=== PATIENT | female | born 1945 | race Caucasian/White ===

== ENCOUNTER 2019-04-01 09:08 | Inpatient (IN) | payer MEDICARE, OTHER ==
[~2019-04-01] VITALS: Ht 157.5 cm; Wt 72.3 kg
[2019-04-01] VITALS (7 sets, daily range): BP systolic 124–155; BP diastolic 62–80
[~2019-04-01 09:08] MED LIST: CEFD300C3 PO; IBP200T PO; IPRA3AMP11 INH; PRD20T PO; RT-COMBINH IH
--- NOTE | 2019-04-01 10:40 | NUR ---
PT ARRIVED TO FLOOR VIA WHEELCHAIR WITH AT SIDE. DIRECT ADMIT FROM DR. COLLIER OFFICE. PT SHORT OF BREATH UPON ARRIVAL WITH MOVEMENT 74% ON RA. 2L NC APPLIED. SP02 93% ON THE 2LNC. PT AND ORIENTED TO ROOM. CALL LIGHT WITHIN REACH. PT REPORTS NKDA.
--- OUTSIDE RECORDS SUMMARY | 2019-04-01 10:50 | XMS REPORT | Continuity of Care Document ---
Author Organization Unknown Address Unknown Allergies Active Description Code Type Severity Reaction Onset Reported/Identified Relationship to Patient Clinical Status Yes No Known Drug Allergies [id number] Drug Allergy Unknown N/A 04/18/2013 Medications There is no data. Problems Date Dx Coded Attending Type Code Diagnosis Diagnosed By 04/18/2013 SHAKILA OSBORNE MD Ot 305.1 04/18/2013 SHAKILA OSBORNE MD Ot 496 04/18/2013 SHAKILA OSBORNE MD Ot 786.2 03/02/2016 RADHA RIVAS APRN Ot J44.9 03/22/2016 RADHA RIVAS APRN Ot J44.9 CHRONIC OBSTRUCTIVE PULMONARY DISEASE, U 04/06/2016 RADHA RIVAS APRN Ot J44.9 CHRONIC OBSTRUCTIVE PULMONARY DISEASE, U Procedures There is no data. Results There is no data. Encounters ACCT No. Visit Date/Time Discharge Status Pt. Type Provider Facility Loc./Unit Complaint 02/201803/12/2019 10:26:26 03/12/2019 23:59:59 CLS Outpatient Jeane Basilio [id number] 03/02/2016 12:08:00 03/02/2016 23:59:59 CLS Outpatient RADHA RIVAS APRN [facility] RAD [id number] 04/18/2013 08:47:00 04/18/2013 12:33:00 DIS Emergency SHAKILA OSBORNE MD [facility] ER
--- OUTSIDE RECORDS SUMMARY | 2019-04-01 10:50 | XMS REPORT | Continuity of Care Document ---
Author Author [facility] Organization [facility] Address Unknown Phone Unavailable Care Team Providers Care Regional Office Coordinator Name Role Phone SHARMILA ODELL DO PP Insurance Providers Payer Name Policy Number Subscriber Name Relationship s Medicare [id number] Rakel Escobar 01 Self / Same As Patient [facility] [employer] [id number] Rakel Escobar Genevieve Self / Same As Patient Advance Directives Directive Response Recorded Date Advance Directives N 04/18/13 8:48am Health Care Power of Motor Carrier Inspector N 04/18/13 8:48am Organ Donor Y 04/18/13 8:48am Problems No Known Problems or Medical conditions. Social History History Response Recorded Date/Time Alcohol Use Denies Use 04/18/13 8:48am Recreational Drug Use N 04/18/13 8:48am Recent Foreign Travel N 04/18/13 8:48am Recent Infectious Disease Exposure N 8:48am Allergies, Adverse Reactions, Alerts Allergen Type Severity Reaction Last Updated No Known Drug Allergies 04/18/13 Medications Medication Dose Units Route Sig Qty Days Prednisone 20 Mg PO DAILY 25 Cefdinir 1 Each PO BID 14 Ipratropium/Albuterol Sulfate (Combivent Inhaler) 2 Puff IH Q6HR PRN 1 Albuterol/Ipratropium (Duoneb Rt) 3 Ml INH QID 1 Ibuprofen (Motrin) 1 Each PO Q4HR PRN Response Recorded Date/Time Status not known Unknown Results No Known Relevant Diagnostic Tests, Laboratory Data and/or Discharge Summary. Encounters Encounter Location Date/Time Departed Emergency Room [facility] 8:47am
[2019-04-01] MEDS ORDERED: TEMAZEPAM 7.5 MG CAP (RESTORIL) PO PRN (12:45)
[2019-04-01] MEDS ORDERED: ACETAMINOPHEN 325 MG TABLET PO PRN (12:45)
[2019-04-01] MEDS ORDERED: PATIENT MAY USE OWN MEDS, ALL PO SCH (12:45)
[2019-04-01] MEDS ORDERED: CETI10TA20 PO (12:50)
[2019-04-01] MEDS ORDERED: SPIR25TA PO (12:50)
[2019-04-01] MEDS ORDERED: IBUP-30 PO (12:50)
[2019-04-01] MEDS ORDERED: BUDE10.2 IH (12:50)
[2019-04-01] MEDS: methylPREDNISolone 125 MG (Solu-MEDROL) VIAL IV SCH ×2 (13:00→19:53)
[2019-04-01] MEDS ORDERED: IPRA3AMP31 NEB (13:15)
--- NOTE | 2019-04-01 13:15 | NUR ---
SPOKE WITH THE PATIENT ABOUT HER MEDICATIONS. SHE LISTED WHAT SHE IS TAKING AND I CALLED [facility] TO VERIFY THE DOSES. [facility] FILLED: 02-14-19 SPIRONOLACTONE 25MG 2 DAILY #180 SHE REPORTS USING SYMBICORT AND A NEBULIZER SOLUTION HOWEVER [facility] DID NOT HAVE THEM ON FILE. I CALLED DR. ODELL'S OFFICE AND THEY STATE SHE HAS SYMBICORT 160 AND DUONEB NEBULIZER SOLUTION. SHE STATES SHE ALSO TAKES ZYRTEC 10MG DAILY AND IBU PRN - THESE ARE OTC.
[2019-04-01 13:49] LABS: BASOPHILS % (AUTO) 0 % (0-10); EOSINOPHILS # (AUTO) 0.2 10^3/uL (0.0-0.3); EOSINOPHILS % (AUTO) 2 % (0-10); HEMATOCRIT 41 % (35-52); HEMOGLOBIN 12.9 G/DL (11.5-16.0); LYMPHOCYTES # (AUTO) 1.6 X 10^3 (1.0-4.0); LYMPHOCYTES % (AUTO) 19 % (12-44); MEAN CORPUSCULAR HEMOGLOBIN 28 PG (25-34); MEAN CORPUSCULAR HGB CONC 32 G/DL (32-36); MEAN CORPUSCULAR VOLUME 89 FL (80-99); MEAN PLATELET VOLUME 8.6 FL (7.4-10.4); MONOCYTES # (AUTO) 0.8 X 10^3 (0.0-1.0); MONOCYTES % (AUTO) 9 % (0-12); NEUTROPHILS % (AUTO) 70 % (42-75); PLATELET COUNT 450 10^3/uL (130-400); RED CELL DISTRIBUTION WIDTH 14.6 % (10.0-14.5); WHITE BLOOD COUNT 8.6 10^3/uL (4.3-11.0)
[2019-04-01 14:05] LABS: ALANINE AMINOTRANSFERASE 20 U/L (0-55); ALBUMIN 3.8 GM/DL (3.2-4.5); ALKALINE PHOSPHATASE 81 U/L (40-136); BILIRUBIN,TOTAL 0.4 MG/DL (0.1-1.0); BUN/CREATININE RATIO 18; CALCIUM 9.5 MG/DL (8.5-10.1); CARBON DIOXIDE 28 MMOL/L (21-32); CHLORIDE 103 MMOL/L (98-107); CREATININE SERUM 0.67 MG/DL (0.60-1.30); GFR ESTIMATED > 60; GLUCOSE 107 MG/DL (70-105); SODIUM 138 MMOL/L (135-145); TOTAL PROTEIN 7.5 GM/DL (6.4-8.2)
[2019-04-01] MEDS: RT-ALBUTEROL/IPRATROPIUM 3 ML (DUONEB) VIAL INH SCH ×3 (15:06→22:02)
--- NOTE | 2019-04-01 17:24 | Diagnostic Imaging Report ---
INDICATION: Difficulty breathing. PA and lateral chest obtained at 1:43 p.m. and compared to 03/02/2016. FINDINGS: Heart is normal in size. There are COPD changes. There is chronic interstitial disease. There appear to be acute superimposed infiltrates over the lung bases on both sides, left greater than right. There is no pneumothorax or pleural fluid. IMPRESSION: COPD changes and chronic interstitial disease. There appear to be acute superimposed infiltrates over the lower lobes on both sides, left worse than right. Superimposed pneumonia not excluded. Followup is recommended. Dictated by: Dictated on workstation # [id number]
--- NOTE | 2019-04-01 19:02 | History & Physicial ---
History of Present Illness History of Present Illness Reason for visit/HPI This is a 73 year old female with known COPD who presented to my office with worsening shortness of air. She was found to be hypoxic with oxygen saturation of 88%. She was placed on oxygen in the office and directly admitted to the hospital for treatment. Date of Admission April 01, 2019 at 10:45 Time Seen by a Provider: 12:30 I consulted on this patient on 04/01/19 18:57 Attending Physician Jeane Basilio DO Admitting Physician Jeane Basilio DO Consult Allergies and Home Medications Allergies Coded Allergies: No Known Drug Allergies (Unverified , 04/01/19) Home Medications Budesonide/Formoterol Fumarate 10.2 Gm Hfa.aer.ad, 2 PUFF IH BID, (Reported) Cetirizine HCl 10 Mg Tablet, 10 MG PO DAILY, (Reported) Ibuprofen 200 Mg Tablet, 400-800 MG PO TID PRN for PAIN-MILD, (Reported) Ipratropium/Albuterol Sulfate 3 Ml Ampul.neb, 3 ML NEB Q6H PRN for SHORTNESS OF BREATH, (Reported) Spironolactone 25 Mg Tablet, 50 MG PO DAILY, (Reported) TAKES 2 (25MG) TABLETS Patient Home Medication List Home Medication List Reviewed: Yes Past Xtppboc-Liplze-Mvvzoz Hx Patient Social History Alcohol Use: Denies Use Recreational Drug Use: No Physical Abuse Screen: No Sexual Abuse: No Recent Foreign Travel: No Contact w/other who traveled: Yes (Daughter- [place]) Recent Hopitalizations: No Recent Infectious Disease Expo: No Immunizations Up To Date Pediatric: No Date of Pneumonia Vaccine: Sep 01, 2018 Seasonal Allergies Seasonal Allergies: No Surgeries Yes Respiratory Yes Currently Using CPAP: No Currently Using BIPAP: No Cardiovascular No Neurological No Reproductive System Hx Reproductive Disorders: No Genitourinary No Gastrointestinal No Musculoskeletal No Endocrine History of Endocrine Disorders: No HEENT Loss of Vision: Denies Hearing Impairment: Hard of Hearing, Bilateral Hearing Aide Cancer No Psychosocial History of Psychiatric Problem: No Integumentary History of Skin or Integumenta: No Blood Transfusions History of Blood Disorders: No Adverse Reaction to a Blood Tr: No Review of Systems Constitutional: weakness EENTM: nose congestion Respiratory: cough, dyspnea on exertion, short of breath, wheezing Gastrointestinal: No RUQ, No LUQ, No RLQ, No LLQ, No no symptoms reported, No see HPI, No abdominal pain, No constipation, No diarrhea, No dysphagia, No hematemesis, No heartburn, No jaundice, No loss of appetite, No melena, No nausea, No vomiting, No other Genitourinary: No no symptoms reported, No see HPI, No decreased output, No discharge, No dysuria, No frequency, No hematuria, No hesitancy, No incontinence , No nocturia, No pain, No other Musculoskeletal: No no symptoms reported, No see HPI, No back pain, No gout, No joint pain, No joint swelling, No muscle pain, No muscle stiffness, No muscle cramps, No muscle twitching, No muscle weakness, No neck pain, No other Skin: No no symptoms reported, No see HPI, No change in color, No change in hair/nails, No dryness, No hx of skin cancer, No lesions, No lumps, No pruritus , No rash, No other Psychiatric/Neurological: Denies No Symptoms Reported, Denies See HPI, Denies Anxiety, Denies Depressed, Denies Emotional Problems, Denies Headache, Denies Numbness, Denies Paresthesia, Denies Pre-Existing Deficit, Denies Seizure, Denies Tingling, Denies Tremors, Denies Weakness, Denies Other Physical Exam Vital Signs Vital Signs - First Documented 04/01/19 10:50 Temp 97.2 Pulse 98 Resp 24 B/P (MAP) 149/65 (93) Pulse Ox 93 O2 Delivery Nasal Cannula O2 Flow Rate 2.00 Capillary Refill : Height, Weight, BMI Height: 5'2.00" Weight: 154lbs. 0.0oz. 69.431165yu; 28.2 BMI Method:Stated General Appearance: Mild Distress HEENT: Pharynx Normal Neck: Supple Respiratory: Decreased Breath Sounds, Respiratory Distress, Wheezing Cardiovascular: Regular Rate, Rhythm Gastrointestinal: Non Tender, Soft Rectal: Deferred Back: No CVA Tenderness Extremity: Non Tender, No Calf Tenderness, No Pedal Edema Neurologic/Psychiatric: Alert, Oriented x3 Skin: Warm/Dry Comments Laboratory Tests 04/01/19 13:18: White Blood Count 8.6, Red Blood Count 4.60, Hemoglobin 12.9, Hematocrit 41, Mean Corpuscular Volume 89, Mean Corpuscular Hemoglobin 28, Mean Corpuscular Hemoglobin Concent 32, Red Cell Distribution Width 14.6H, Platelet Count 450H, Mean Platelet Volume 8.6, Neutrophils (%) (Auto) 70, Lymphocytes (%) (Auto) 19, Monocytes (%) (Auto) 9, Eosinophils (%) (Auto) 2, Basophils (%) (Auto) 0, Neutrophils # (Auto) 6.0, Lymphocytes # (Auto) 1.6, Monocytes # (Auto) 0.8, Eosinophils # (Auto) 0.2, Basophils # (Auto) 0.0, Sodium Level 138, Potassium Level 4.0, Chloride Level 103, Carbon Dioxide Level 28, Anion Gap 7, Blood Urea Nitrogen 12, Creatinine 0.67, Estimat Glomerular Filtration Rate > 60, BUN/ Creatinine Ratio 18, Glucose Level 107H, Calcium Level 9.5, Corrected Calcium 9.7, Total Bilirubin 0.4, Aspartate Amino Transf (AST/SGOT) 16, Alanine Aminotransferase (ALT/SGPT) 20, Alkaline Phosphatase 81, Troponin I < 0.028, Total Protein 7.5, Albumin 3.8 Assessment/Plan Assessment and Plan 1. COPD with acute exacerbation--IV solumedrol, SVNs with duoneb 2. Hypoxemia--oxygen and SVNs 3. Hypertension/Tachycardia--add low dose metoprolol Admission Diagnosis Admission Status: Inpatient Order (span 2 midnights) Reason for Inpatient Admission: Will need IV solumedrol and then to be weaned from this Clinical Quality Measures DVT/VTE Risk/Contraindication: Risk Factor Score Per Nursin RFS Level Per Nursing on Admit: 4+=Very High JEANE BASILIO DO April 01, 2019 19:02
[2019-04-01] MEDS ORDERED: CATHETER FLUSH 10 ML SYR IV PRN (20:15)
[2019-04-01] MEDS: DOXYCYCLINE 100 MG (VIBRAMYCIN) TABLET PO SCH (21:41)
[2019-04-01] MEDS: CATHETER FLUSH 10 ML SYR IV SCH (22:17)
[2019-04-02] MEDS: methylPREDNISolone 125 MG (Solu-MEDROL) VIAL IV SCH ×4 (01:21→18:55)
[2019-04-02] MEDS: RT-ALBUTEROL/IPRATROPIUM 3 ML (DUONEB) VIAL INH SCH ×6 (02:10→22:06)
[2019-04-02] MEDS: CATHETER FLUSH 10 ML SYR IV SCH ×3 (06:27→22:19)
[2019-04-02] MEDS: DOXYCYCLINE 100 MG (VIBRAMYCIN) TABLET PO SCH ×2 (06:27→17:01)
[2019-04-02 08:00] VITALS: BP 141/60
[2019-04-02 14:00] VITALS: BP 122/69
--- NOTE | 2019-04-02 15:58 | Diagnostic Imaging Report ---
PROCEDURE: CT chest without contrast. TECHNIQUE: Multiple contiguous axial images were obtained through the chest without the use of intravenous contrast. Auto Exposure Controls were utilized during the CT exam to meet ALARA standards for radiation dose reduction. INDICATION: COPD exacerbation, dyspnea, infiltrates. COMPARISON: Radiographs from 04/01/2019. FINDINGS: The heart is normal in size. There is no pericardial effusion. No significant mediastinal adenopathy is seen. The largest mediastinal lymph node measures 9 mm in the short axis in the precarinal region. There is no pleural effusion or pneumothorax. Mild emphysematous changes are seen in the lungs. There are linear opacities in the lung bases which are thought to be due to atelectasis and scarring. There also appear to be airspace opacities at the lingula and the anterior middle lobe bilaterally, with additional scattered peripheral nodular densities in the left lung base. No focal mass is seen at this time. Imaged portions of the upper abdomen demonstrate no acute abnormality. No acute osseous abnormality is seen. IMPRESSION: 1. Atelectasis and scarring in the lung bases, left greater than right, with additional bilateral airspace and left basilar nodular opacities which may be due to superimposed infection. 2. Mild emphysematous changes in the lungs. Dictated by: Dictated on workstation # [id number]
[2019-04-02 16:35] VITALS: BP 116/61
--- NOTE | 2019-04-02 18:16 | Progress Note (SOAP) ---
Subjective Date Seen by a Provider: April 02, 2019 Time Seen by a Provider: 18:13 Subjective/Events-last exam Fwup COPD exac, hypoxia, Tachycardia, HTN. Feeling better. Objective Exam Vital Signs Date Time Temp Pulse Resp B/P (MAP) Pulse Ox O2 Delivery O2 Flow Rate FiO2 04/02/19 16:35 97.1 92 24 116/61 (79) 91 Nasal Cannula 2.00 04/02/19 14:00 97.5 100 18 122/69 (86) 90 Nasal Cannula 2.00 04/02/19 08:30 92 Nasal Cannula 2.00 04/02/19 08:16 92 Nasal Cannula 2.00 04/02/19 08:00 97.4 78 18 141/60 (87) 90 Nasal Cannula 2.00 04/02/19 02:10 92 Nasal Cannula 2.00 04/01/19 23:31 97.4 93 16 155/80 (105) 93 Nasal Cannula 2.00 04/01/19 22:02 96 Nasal Cannula 2.00 04/01/19 20:28 95 Nasal Cannula 2.00 04/01/19 19:10 98.3 91 16 124/72 (89) 95 Nasal Cannula 2.00 04/01/19 18:34 96 Nasal Cannula 2.00 I & O 04/02/19 07:00 Intake Total 1180 ml Output Total 2400 ml Balance -1220 ml Capillary Refill : General Appearance: Mild Distress Neck: Supple Respiratory: Lungs Clear, Decreased Breath Sounds, Respiratory Distress (mild conversational dyspnea) Cardiovascular: Regular Rate, Rhythm Gastrointestinal: normal bowel sounds, non tender, soft Extremity: Non Tender, No Calf Tenderness, No Pedal Edema Neurologic/Psychiatric: Alert, Oriented x3 Skin: Warm/Dry Assessment/Plan Assessment/Plan Assess & Plan/Chief Complaint 1. Acute Exacerbation of COPD with Acute Bronchitis--Check CT scan of chest, Continue SVNs, Decrease IV solumedrol, Doycycline started 2. Hypoxia--on oxygen 3. Tachycardia/HTN--improved with low dose beta mireya Clinical Quality Measures Admission Status Admission Dx 1. COPD with acute exacerbation--IV solumedrol, SVNs with duoneb 2. Hypoxemia--oxygen and SVNs 3. Hypertension/Tachycardia--add low dose metoprolol DVT/VTE Risk/Contraindication: Risk Factor Score Per Nursin RFS Level Per Nursing on Admit: 4+=Very High SHARMILA ODELL DO April 02, 2019 18:16
[2019-04-03] VITALS: BP 119/71
[2019-04-03] MEDS: methylPREDNISolone 125 MG (Solu-MEDROL) VIAL IV SCH ×4 (01:25→18:27)
[2019-04-03] MEDS: RT-ALBUTEROL/IPRATROPIUM 3 ML (DUONEB) VIAL INH SCH ×6 (01:45→22:30)
[2019-04-03] MEDS: CATHETER FLUSH 10 ML SYR IV SCH ×2 (06:25→13:08)
[2019-04-03] MEDS: DOXYCYCLINE 100 MG (VIBRAMYCIN) TABLET PO SCH ×2 (06:27→17:46)
[2019-04-03 08:00] VITALS: BP_SYST 130; BP_SYST 96; BP_DIAS 53; BP_DIAS 61
[2019-04-03 14:00] VITALS: BP 131/75
[2019-04-03 16:10] VITALS: BP 120/65
--- NOTE | 2019-04-03 21:53 | Progress Note (SOAP) ---
Subjective Date Seen by a Provider: April 03, 2019 Time Seen by a Provider: 08:35 Subjective/Events-last exam Fwup COPD exac, hypoxia, Tachycardia, HTN. Little more short of air this morning. Objective Exam Vital Signs Date Time Temp Pulse Resp B/P (MAP) Pulse Ox O2 Delivery O2 Flow Rate FiO2 04/03/19 19:59 Nasal Cannula 5.00 04/03/19 19:04 88 Nasal Cannula 3.00 04/03/19 16:10 97.0 88 24 120/65 (83) 91 Nasal Cannula 4.00 04/03/19 14:00 98.0 98 18 131/75 (93) 97 Nasal Cannula 2.00 04/03/19 13:58 94 Nasal Cannula 3.00 04/03/19 09:39 93 Nasal Cannula 3.00 04/03/19 08:00 92 Nasal Cannula 2.00 04/03/19 08:00 97.6 101 18 130/61 (84) 98 Nasal Cannula 2.00 04/03/19 06:23 90 Nasal Cannula 91.00 04/03/19 01:47 90 Nasal Cannula 3.00 04/03/19 00:00 96.8 94 22 119/71 (87) 92 Nasal Cannula 2.00 04/02/19 22:08 88 Nasal Cannula 2.00 I & O 04/03/19 07:00 Intake Total 1180 ml Output Total 950 ml Balance 230 ml Capillary Refill : General Appearance: Mild Distress Neck: Supple Respiratory: Decreased Breath Sounds, Respiratory Distress (mild) Cardiovascular: Regular Rate, Rhythm Gastrointestinal: normal bowel sounds, non tender, soft Extremity: No Calf Tenderness, No Pedal Edema Neurologic/Psychiatric: Alert, Oriented x3 Skin: Warm/Dry Assessment/Plan Assessment/Plan Assess & Plan/Chief Complaint 1. Acute Exacerbation of COPD with Acute Bronchitis--Continue SVNs, Cont IV solumedrol, Doycycline started 2. Hypoxia--on oxygen 3. Tachycardia/HTN--improved with low dose beta mireya Clinical Quality Measures Admission Status Admission Dx 1. COPD with acute exacerbation--IV solumedrol, SVNs with duoneb 2. Hypoxemia--oxygen and SVNs 3. Hypertension/Tachycardia--add low dose metoprolol DVT/VTE Risk/Contraindication: Risk Factor Score Per Nursin RFS Level Per Nursing on Admit: 4+=Very High SHARMILA ODELL DO April 03, 2019 21:53
[2019-04-04 00:16] VITALS: BP 115/55
[2019-04-04] MEDS: CATHETER FLUSH 10 ML SYR IV SCH ×4 (01:12→20:08)
[2019-04-04] MEDS: methylPREDNISolone 125 MG (Solu-MEDROL) VIAL IV SCH ×4 (01:13→17:41)
[2019-04-04] MEDS: RT-ALBUTEROL/IPRATROPIUM 3 ML (DUONEB) VIAL INH SCH ×6 (01:25→22:12)
--- NOTE | 2019-04-04 01:30 | NUR ---
PT. SITTING ON SIDE OF BED. BREATHING LABORED/ SOA AT REST. RT IN ROOM. DR. ODELL NOTIFIED BY VENESSA RT NEW ORDERS RECEIVED: PLACE ON BIPAP WILL CONTINUE TO MONITOR.
[2019-04-04] MEDS ORDERED: LORazepam INJ 2 MG/ML (ATIVAN) VIAL ONE (02:38)
[2019-04-04] MEDS ORDERED: LORazepam INJ 2 MG/ML (ATIVAN) VIAL IVP PRN (02:45)
--- NOTE | 2019-04-04 02:48 | NUR ---
DR. ODELL NOTIFIED OF PT STATUS. PT'S BREATHING AND O2 SATURATION IMPROVED. PT ANXIOUS WITH MASK AND PRESSURE. NEW ORDERS RECEIVED: ATIVAN 0.5MG IV Q6HRS PRN
[2019-04-04] MEDS: DOXYCYCLINE 100 MG (VIBRAMYCIN) TABLET PO SCH ×2 (06:10→17:42)
[2019-04-04 08:00] VITALS: BP 143/67
[2019-04-04] MEDS ORDERED: FAMOTIDINE 20MG/2ML IV (PEPCID) IVP NR (10:54)
[2019-04-04 11:04] LABS: BASOPHILS % (AUTO) 0 % (0-10); EOSINOPHILS % (AUTO) 0 % (0-10); HEMATOCRIT 41 % (35-52); HEMOGLOBIN 13.1 G/DL (11.5-16.0); LYMPHOCYTES # (AUTO) 0.7 X 10^3 (1.0-4.0); LYMPHOCYTES % (AUTO) 4 % (12-44); MEAN CORPUSCULAR HEMOGLOBIN 29 PG (25-34); MEAN CORPUSCULAR HGB CONC 32 G/DL (32-36); MEAN CORPUSCULAR VOLUME 90 FL (80-99); MEAN PLATELET VOLUME 8.6 FL (7.4-10.4); MONOCYTES # (AUTO) 0.5 X 10^3 (0.0-1.0); MONOCYTES % (AUTO) 3 % (0-12); NEUTROPHILS # (AUTO) 16.2 X 10^3 (1.8-7.8); NEUTROPHILS % (AUTO) 93 % (42-75); PLATELET COUNT 486 10^3/uL (130-400); RED CELL DISTRIBUTION WIDTH 14.9 % (10.0-14.5); WHITE BLOOD COUNT 17.3 10^3/uL (4.3-11.0)
--- NOTE | 2019-04-04 11:06 | Diagnostic Imaging Report ---
INDICATION: Respiratory distress COMPARISON: 04/01/2019 FINDINGS: Single view of the chest demonstrates stable cardiac enlargement. Chronic interstitial changes are seen throughout both lungs. There is persistent but decreasing infiltrate in the left lung base. No large effusion is seen. There is no pneumothorax. There is no pulmonary edema. Osseous structures stable. IMPRESSION: Persistent but decreased infiltrate left lung base. Dictated by: Dictated on workstation # [id number]
[2019-04-04 11:18] LABS: BAND NEUTROPHILS 3 %; BASOPHILS % (MANUAL) 0 %; EOSINOPHILS % (MANUAL) 0 %; LYMPHOCYTES % (MANUAL) 8 %; MONOCYTES % (MANUAL) 0 %; NEUTROPHILS % (MANUAL) 89 %; RBC MORPH NORMAL
[2019-04-04 11:24] LABS: ALBUMIN 3.7 GM/DL (3.2-4.5); BILIRUBIN,TOTAL 0.2 MG/DL (0.1-1.0); CALCIUM 9.6 MG/DL (8.5-10.1); CREATININE SERUM 0.92 MG/DL (0.60-1.30); POTASSIUM 4.8 MMOL/L (3.6-5.0)
[2019-04-04] MEDS: cefTRIAXone FOR IV USE 1,000 MG in WATER (STERILE) FOR INJECTION 10 ML IV SCH (11:36)
[2019-04-04] MEDS: ENOXAPARIN 40 MG/0.4 ML (LOVENOX) SYR SC SCH (11:36)
--- NOTE | 2019-04-04 12:23 | Pulmonary Consultation ---
History of Present Illness History of Present Illness Date of Consultation 04/04/19 12:17 Time Seen by Provider: 12:17 Date of Admission History of Present Illness 73yo with hx of COPD and worsening SOB. She was found to be hypoxic with Sp02 of 88% in Dr. Basilio's office on 04/01. Pt was then directly admitted to 4th floor. Pt has been requiring high dose solumedrol and is also now requiring BiPAP. No fevers since admission. I am consulted for pulmonary management. Allergies and Home Medications Allergies Coded Allergies: No Known Drug Allergies (Unverified , 04/01/19) Home Medications Budesonide/Formoterol Fumarate 10.2 Gm Hfa.aer.ad, 2 PUFF IH BID, (Reported) Cetirizine HCl 10 Mg Tablet, 10 MG PO DAILY, (Reported) Ibuprofen 200 Mg Tablet, 400-800 MG PO TID PRN for PAIN-MILD, (Reported) Ipratropium/Albuterol Sulfate 3 Ml Ampul.neb, 3 ML NEB Q6H PRN for SHORTNESS OF BREATH, (Reported) Spironolactone 25 Mg Tablet, 50 MG PO DAILY, (Reported) TAKES 2 (25MG) TABLETS Past Rgxarow-Ltzdnl-Aycatu Hx Patient Social History Alcohol Use: Denies Use Recreational Drug Use: No Recent Foreign Travel: No Contact w/Someone Who Travel: Yes (Daughter- [place]) Recent Infectious Disease Expo: No Recent Hopitalizations: No Immunizations Up To Date PED Vaccines UTD: No Date of Pneumonia Vaccine: Sep 01, 2018 Seasonal Allergies Seasonal Allergies: No Past Medical History Surgeries: Yes Respiratory: Yes COPD, Emphysema Currently Using CPAP: No Currently Using BIPAP: No Cardiac: No Neurological: No : No Reproductive Disorders: No Genitourinary: No Gastrointestinal: No Musculoskeletal: No Endocrine: No Loss of Vision: Denies Hearing Impairment: Hard of Hearing, Bilateral Hearing Aide Cancer: No Psychosocial: No Integumentary: No Blood Disorders: No Adverse Reaction/Blood Tranf: No Review of Systems Time Seen by Provider: 12:30 Sepsis Event Evaluation Height, Weight, BMI Height: 5'2.00" Weight: 161lbs. 8.3oz. 73.115111wn; 28.2 BMI Method:Stated Exam Exam Vital Signs Date Time Temp Pulse Resp B/P (MAP) Pulse Ox O2 Delivery O2 Flow Rate FiO2 04/04/19 10:46 91 26 94 40.00 04/04/19 08:00 97.3 90 31 143/67 (92) 96 Nasal Cannula 2.00 04/04/19 07:21 87 21 98 50.00 04/04/19 02:37 94 37 98 50.00 04/04/19 01:38 113 31 98 60.00 04/04/19 01:33 NIV Bilevel 04/04/19 01:25 85 Nasal Cannula 6.00 04/04/19 00:16 97.2 104 24 115/55 (75) 95 Nasal Cannula 5.00 04/03/19 22:30 94 Nasal Cannula 5.00 04/03/19 19:59 Nasal Cannula 5.00 04/03/19 19:04 88 Nasal Cannula 3.00 04/03/19 16:10 97.0 88 24 120/65 (83) 91 Nasal Cannula 4.00 04/03/19 14:00 98.0 98 18 131/75 (93) 97 Nasal Cannula 2.00 04/03/19 13:58 94 Nasal Cannula 3.00 I & O 04/04/19 07:00 Intake Total 1340 ml Output Total 650 ml Balance 690 ml Height & Weight Height: 5'2.00" Weight: 161lbs. 8.3oz. 73.678014cf; 28.2 BMI Method:Stated General Appearance: Anxious, Chronically ill, Moderate Distress, Thin HEENT: Pharynx Normal Neck: Supple Respiratory: Decreased Breath Sounds, Respiratory Distress (mild) Cardiovascular: Regular Rate, Rhythm Gastrointestinal: normal bowel sounds, non tender, soft Extremity: No Calf Tenderness, No Pedal Edema Neurologic/Psychiatric: Alert, Oriented x3 Skin: Warm/Dry Results Lab Laboratory Tests 04/04/19 11:00 Assessment/Plan Assessment/Plan Acute respiratory failure -Check ABG -Check Bilateral dopplers LE -pt is currently requiring noninvasive ventilation. COPDAE with hypoxia -Solumedrol -Oxygen -Duoneb Anxiety -Pt is getting Ativan DOM COTE DO April 04, 2019 12:23
[2019-04-04 12:58] LABS: ABG BASE EXCESS 1.6 MMOL/L (-2.5-2.5); ABG OXYGEN SATURATION 98 % (94-100); ABG PCO2 44 MMHG (35-45); ABG PH 7.39 (7.37-7.43); ABG PO2 104 MMHG (79-93); ABG TCO2 27.6 MMOL/L (21.0-31.0); ALLENS TEST YES-POS
[2019-04-04 12:59] LABS: INSPIRED O2 40% BIPAP; PATIENT TEMP 97.2; VENTILATOR NO
--- NOTE | 2019-04-04 13:52 | Progress Note (SOAP) ---
Subjective Date Seen by a Provider: April 04, 2019 Time Seen by a Provider: 10:15 Subjective/Events-last exam Fwup COPD exac, hypoxia, Tachycardia, HTN. Had to be put on BIPAP last night due to respiratory distress. Objective Exam Vital Signs Date Time Temp Pulse Resp B/P (MAP) Pulse Ox O2 Delivery O2 Flow Rate FiO2 04/04/19 10:46 91 26 94 40.00 04/04/19 08:00 94 NIV Bilevel 40.00 04/04/19 08:00 97.3 90 31 143/67 (92) 96 Nasal Cannula 2.00 04/04/19 07:21 87 21 98 50.00 04/04/19 02:37 94 37 98 50.00 04/04/19 01:38 113 31 98 60.00 04/04/19 01:33 NIV Bilevel 04/04/19 01:25 85 Nasal Cannula 6.00 04/04/19 00:16 97.2 104 24 115/55 (75) 95 Nasal Cannula 5.00 04/03/19 22:30 94 Nasal Cannula 5.00 04/03/19 19:59 Nasal Cannula 5.00 04/03/19 19:04 88 Nasal Cannula 3.00 04/03/19 16:10 97.0 88 24 120/65 (83) 91 Nasal Cannula 4.00 04/03/19 14:00 98.0 98 18 131/75 (93) 97 Nasal Cannula 2.00 04/03/19 13:58 94 Nasal Cannula 3.00 I & O 04/04/19 07:00 Intake Total 1340 ml Output Total 650 ml Balance 690 ml Capillary Refill : General Appearance: Mild Distress Neck: Supple Respiratory: Lungs Clear, Decreased Breath Sounds, Respiratory Distress (on BiPAP) Cardiovascular: Regular Rate, Rhythm Gastrointestinal: normal bowel sounds, non tender, soft Extremity: Non Tender, No Calf Tenderness, No Pedal Edema Neurologic/Psychiatric: Alert, Oriented x3 Results Lab Laboratory Tests 04/04/19 11:00: White Blood Count 17.3H, Red Blood Count 4.54, Hemoglobin 13.1, Hematocrit 41, Mean Corpuscular Volume 90, Mean Corpuscular Hemoglobin 29, Mean Corpuscular Hemoglobin Concent 32, Red Cell Distribution Width 14.9H, Platelet Count 486H, Mean Platelet Volume 8.6, Neutrophils (%) (Auto) 93H, Lymphocytes (%) (Auto) 4L , Monocytes (%) (Auto) 3, Eosinophils (%) (Auto) 0, Basophils (%) (Auto) 0, Neutrophils # (Auto) 16.2H, Lymphocytes # (Auto) 0.7L, Monocytes # (Auto) 0.5, Eosinophils # (Auto) 0.0, Basophils # (Auto) 0.0, Neutrophils % (Manual) 89, Lymphocytes % (Manual) 8, Monocytes % (Manual) 0, Eosinophils % (Manual) 0, Basophils % (Manual) 0, Band Neutrophils 3, Blood Morphology Comment NORMAL, Sodium Level 139, Potassium Level 4.8, Chloride Level 105, Carbon Dioxide Level 23, Anion Gap 11, Blood Urea Nitrogen 37H, Creatinine 0.92, Estimat Glomerular Filtration Rate 60, BUN/Creatinine Ratio 40, Glucose Level 141H, Calcium Level 9.6, Corrected Calcium 9.8, Total Bilirubin 0.2, Aspartate Amino Transf (AST/ SGOT) 14, Alanine Aminotransferase (ALT/SGPT) 25, Alkaline Phosphatase 76, Total Protein 7.0, Albumin 3.7 04/04/19 12:45: Blood Gas Puncture Site RT RAD, Blood Gas Patient Temperature 97.2, Arterial Blood pH 7.39, Arterial Blood Partial Pressure CO2 44, Arterial Blood Partial Pressure O2 104H, Arterial Blood HCO3 26, Arterial Blood Total CO2 27.6, Arterial Blood Oxygen Saturation 98, Arterial Blood Base Excess 1.6, Marshal Test YES-POS, Blood Gas Ventilator Setting NO, Blood Gas Inspired Oxygen 40% BIPAP Microbiology 04/03/19 Gram Stain - Final, Resulted 04/03/19 Sputum Culture - Preliminary, Resulted Strep Species, Alpha Hemolytic Gram Negative Adi Assessment/Plan Assessment/Plan Assess & Plan/Chief Complaint 1. Acute Exacerbation of COPD with Acute Bronchitis--Continue SVNs, Cont IV solumedrol, Doycycline started, Will add rocephin and repeat CXR 2. Hypoxia with Acute Respiratory Distress--now on BIPAP, consult pulmonology, Check ABG to see if we can wean to vapotherm 3. Tachycardia/HTN--improved with low dose beta mireya 4. Anxiety related to BIPAP--has ativan IV prn Clinical Quality Measures Admission Status Admission Dx 1. COPD with acute exacerbation--IV solumedrol, SVNs with duoneb 2. Hypoxemia--oxygen and SVNs 3. Hypertension/Tachycardia--add low dose metoprolol DVT/VTE Risk/Contraindication: Risk Factor Score Per Nursin RFS Level Per Nursing on Admit: 4+=Very High SHARMILA ODELL DO April 04, 2019 13:51
[2019-04-04] MEDS ORDERED: HOLD METFORMIN - RECEIVED CONTRAST 20 ML VIAL IV SCH (14:00)
[2019-04-04] MEDS ORDERED: IOHEXOL 350 MG/ML 150 ML (OMNIPAQUE 350) VIAL IV ONE (14:00)
--- NOTE | 2019-04-04 14:42 | Diagnostic Imaging Report ---
PROCEDURE: US Venous Lower Ext Kj. TECHNIQUE: Multiple real-time grayscale images were obtained over the lower extremities in various projections, bilaterally. Additional duplex Doppler and color Doppler images were also obtained. INDICATION: COPD, exacerbation. FINDINGS: There is no evidence of right or left lower extremity DVT. Both lower extremity deep venous systems demonstrate normal compressibility with normal response to augmentation and Valsalva. No fluid collection or mass is seen. IMPRESSION: No evidence of right or left lower extremity DVT. Dictated by: Dictated on workstation # [id number]
--- NOTE | 2019-04-04 15:57 | Diagnostic Imaging Report ---
PROCEDURE: CT angiography of the chest with contrast. TECHNIQUE: Multiple contiguous axial images were obtained through the chest after uneventful bolus administration of intravenous contrast. 2D reconstructed CTA MIP acquisitions were also performed. Auto Exposure Controls were utilized during the CT exam to meet ALARA standards for radiation dose reduction. INDICATION: Shortness of air. History of COPD. COMPARISON: 04/02/2019. FINDINGS: There is no CT evidence of acute pulmonary embolus to the first subsegmental division of the pulmonary arteries. Heart size is within normal limits. There is no large pericardial effusion. There is moderate scattered calcified aortic atherosclerosis. There is also at least mild calcified coronary atherosclerosis. Evaluation of the coronary arteries, however, is obscured by motion artifact as well as beam hardening artifact from contrast bolus in the right atrium and ventricle. No pathologically enlarged or morphologically abnormal adenopathy is seen within the mediastinum, halle, nor axillae. Evaluation of the lung windows demonstrates patchy alveolar densities within both lower lobes, as well as within the anterior inferior margins of the right middle lobe and lingula of the left upper lobe. Juxtapleural 8 mm micronodular density is noted within the posterior left lower lobe (image 94, series 5). There is also subtle septal thickening and ground-glass densities within the bilateral upper lobes. These changes appear to be superimposed on a background moderate emphysematous disease. There is no large effusion or pneumothorax on either side. Bony structures show no acute abnormalities. Included portions of the upper abdomen are unremarkable. IMPRESSION: 1. No evidence of acute pulmonary embolus. 2. Calcified aortic and coronary atherosclerotic disease as described above. 3. Patchy areas of alveolar density within the bilateral mid and lower lung schilling. Findings could be on the basis of atelectasis, although scattered patchy infiltrate is not excluded. Clinical correlation and followup is advised. 4. 8 mm micronodular density within the left lower lobe. Please see below for followup recommendations. 5. Subtle septal thickening and ground-glass densities suspicious for pulmonary edema potentially superimposed on background emphysematous disease. Clinical correlation recommended. PULMONARY NODULE FOLLOW-UP Single nodule: <6 mm: * Low risk patient - no routine follow up * High risk patient - optional at 12 months 6-8 mm in size: * Low risk patient - Ct at 6-12 months, then consider at 18-24 months * High risk patient - Ct at 6-12 months, then at 18-24 months >8 mm * Low risk patient - consider CT at 3 months, PET/CT or tissue sampling * High risk patient - consider CT at 3 months, PET/CT, or tissue sampling (Certain patients at high risk with suspicious nodule morphology, upper lobe location, or both may warrant 12-month follow-up) Dictated by: Dictated on workstation # [id number]
[2019-04-04 16:10] VITALS: BP 124/60
[2019-04-04] MEDS ORDERED: FAMOTIDINE 20MG/2ML IV (PEPCID) IVP SCH (21:00)
[2019-04-05 00:06] VITALS: BP 127/59
[2019-04-05] MEDS: methylPREDNISolone 125 MG (Solu-MEDROL) VIAL IV SCH ×4 (00:06→19:36)
[2019-04-05] MEDS: RT-ALBUTEROL/IPRATROPIUM 3 ML (DUONEB) VIAL INH SCH ×6 (02:15→22:49)
[2019-04-05] MEDS: CATHETER FLUSH 10 ML SYR IV SCH ×3 (06:19→21:14)
[2019-04-05] MEDS: DOXYCYCLINE 100 MG (VIBRAMYCIN) TABLET PO SCH ×2 (06:19→17:16)
[2019-04-05 06:43] LABS: BASOPHILS % (AUTO) 0 % (0-10); EOSINOPHILS % (AUTO) 0 % (0-10); HEMATOCRIT 42 % (35-52); HEMOGLOBIN 13.1 G/DL (11.5-16.0); LYMPHOCYTES # (AUTO) 0.6 X 10^3 (1.0-4.0); LYMPHOCYTES % (AUTO) 4 % (12-44); MEAN CORPUSCULAR HEMOGLOBIN 28 PG (25-34); MEAN CORPUSCULAR HGB CONC 32 G/DL (32-36); MEAN CORPUSCULAR VOLUME 89 FL (80-99); MONOCYTES # (AUTO) 0.5 X 10^3 (0.0-1.0); MONOCYTES % (AUTO) 4 % (0-12); NEUTROPHILS # (AUTO) 12.5 X 10^3 (1.8-7.8); NEUTROPHILS % (AUTO) 92 % (42-75); PLATELET COUNT 513 10^3/uL (130-400); WHITE BLOOD COUNT 13.7 10^3/uL (4.3-11.0)
[2019-04-05 08:00] VITALS: BP 145/64
--- NOTE | 2019-04-05 08:39 | Pulmonary Progress Note ---
Subjective Time Seen by a Provider: 09:04 Subjective/Events-last exam pt has no complaints. Sepsis Event Evaluation Height, Weight, BMI Height: 5'2.00" Weight: 160lbs. 5.3oz. 72.542609gu; 28.2 BMI Method:Stated Exam Exam Vital Signs Date Time Temp Pulse Resp B/P (MAP) Pulse Ox O2 Delivery O2 Flow Rate FiO2 04/05/19 07:49 94 Nasal Cannula 4.00 04/05/19 02:15 98 Nasal Cannula 4.00 04/05/19 00:06 97.3 97 22 127/59 (81) 97 Nasal Cannula 4.00 04/04/19 22:12 94 Nasal Cannula 4.00 04/04/19 20:00 Nasal Cannula 4.00 04/04/19 18:37 94 Nasal Cannula 4.00 04/04/19 16:10 98.6 103 24 124/60 (81) 92 Nasal Cannula 4.00 04/04/19 14:38 76 26 97 40.00 04/04/19 10:46 91 26 94 40.00 I & O 04/05/19 07:00 Intake Total 730 ml Output Total 475 ml Balance 255 ml Height & Weight Height: 5'2.00" Weight: 160lbs. 5.3oz. 72.333963sq; 28.2 BMI Method:Stated General Appearance: Mild Distress HEENT: Pharynx Normal Neck: Supple Respiratory: Lungs Clear, Decreased Breath Sounds, Respiratory Distress (on BiPAP) Cardiovascular: Regular Rate, Rhythm Gastrointestinal: normal bowel sounds, non tender, soft Extremity: Non Tender, No Calf Tenderness, No Pedal Edema Neurologic/Psychiatric: Alert, Oriented x3 Skin: Warm/Dry Results Lab Laboratory Tests 04/04/19 11:00 04/05/19 06:04 Assessment/Plan Assessment/Plan Acute respiratory failure - ABG- C02 44 -Check Bilateral dopplers LE - negative -CT of chest shows atelectasis -pt is currently requiring noninvasive ventilation. COPDAE with hypoxia -Solumedrol -Oxygen -Duoneb Anxiety -Pt is getting Ativan DOM COTE DO April 05, 2019 08:39
[2019-04-05] MEDS: FAMOTIDINE 20MG/2ML IV (PEPCID) IVP SCH (09:10)
[2019-04-05] MEDS: ENOXAPARIN 40 MG/0.4 ML (LOVENOX) SYR SC SCH (10:53)
[2019-04-05] MEDS: cefTRIAXone FOR IV USE 1,000 MG in WATER (STERILE) FOR INJECTION 10 ML IV SCH (10:53)
--- NOTE | 2019-04-05 11:55 | Progress Note-Hospitalist ---
Subjective HPI/CC On Admission Date Seen by Provider: April 05, 2019 Time Seen by Provider: 12:00 Subjective/Events-last exam Patient doing much better Off Vapotherm and BiPAP and on 4 L of oxygen Overall feels much better Interested in pulmonary rehabilitation Daughter at the bedside Denies any pain Overall much improved Slept better last night Review of Systems General: Fatigue Pulmonary: Dyspnea Objective Exam Vital Signs Vital Signs Date Time Temp Pulse Resp B/P (MAP) Pulse Ox O2 Delivery O2 Flow Rate FiO2 04/05/19 11:57 96 Nasal Cannula 4.00 04/05/19 08:00 97.8 97 22 145/64 (91) Capillary Refill : General Appearance: Mild Distress HEENT: Pharynx Normal Neck: Supple Respiratory: Lungs Clear, No Accessory Muscle Use, No Respiratory Distress, Crackles, Decreased Breath Sounds, Respiratory Distress (on BiPAP) Cardiovascular: Regular Rate, Rhythm Gastrointestinal: Non Tender, Soft Rectal: Deferred Back: No CVA Tenderness Extremity: Non Tender, No Calf Tenderness, No Pedal Edema Neurologic/Psychiatric: Alert, Oriented x3 Skin: Warm/Dry Results/Procedures Lab Laboratory Tests 04/05/19 06:04 Patient resulted labs reviewed. Assessment/Plan Assessment and Plan Assess & Plan/Chief Complaint Assessment per PCP: 1. Acute Exacerbation of COPD with Acute Bronchitis--Continue SVNs, Cont IV solumedrol, Doycycline started, Will add rocephin and repeat CXR 2. Hypoxia with Acute Respiratory Distress--s/p biPAP and Vapotherm now on 4 liters/min 3. Tachycardia/HTN--improved with low dose beta mireya 4. Anxiety related to BIPAP--has ativan IV prn Plan: Doing much better Monitor oxygen Diagnosis/Problems Diagnosis/Problems (1) COPD exacerbation Status: Acute (2) Hypoxia Status: Acute Clinical Quality Measures DVT/VTE Risk/Contraindication: Risk Factor Score Per Nursin RFS Level Per Nursing on Admit: 4+=Very High MARY MARTINEZ DO April 05, 2019 11:55
--- NOTE | 2019-04-05 14:37 | Consultation-Cardiology ---
HPI-Cardiology Cardiology Consultation: Date of Consultation 04/05/19 Date of Admission Attending Physician Jeane Basilio DO Admitting Physician Jeane Basilio DO Consulting Physician Elroy CASTILLO MD HPI: Time Seen by a Provider: 13:00 Chief Complaint: Shortness of breath This is a 73-year-old lady who follows with Dr. Basilio. She has history of COPD. She was directly admitted from Dr. Basilio's office for complains of hypoxia and shortness of breath with oxygen saturation of 88 percent on room air. Patient denies any chest pain. Improved shortness of breath. Review of Systems-Cardiology Review of Systems Constitutional: As described under HPI; No As described under HPI, No no symptoms reported, No chills, No fever, No lightheadedness Eyes: No As described under HPI, No no symptoms reported, No blindness, No blurred vision, No contact lenses, No drainage, No decreased acuity, No foreign body sensation, No pain, No vision change Ears/Nose/Throat: No As described under HPI, No no symptoms reported, No chronic hearing loss, No ear discharge, No ear pain, No nasal drainage, No ulcerations Respiratory: No no symptoms reported; As described under HPI; No As described under HPI, No cough, No orthopnea; shortness of breath; No SOB with excertion Cardiovascular: No no symptoms reported; As described under HPI; No As described under HPI, No chest pain, No edema, No irregular heart rate, No lightheadedness, No palpitations Gastrointestinal: No no symptoms reported, No As described under HPI, No abdomen distended, No abdominal pain, No blood streaked bowels, No constipation , No diarrhea, No nausea, No vomiting, No stool coloration changes Genitourinary: No As described under HPI, No burning, No dysuria, No discharge , No frequency, No flank pain, No hematuria, No urgency : Yes : No Skin: No rash, No skin related problems, No ulcerations Psychiatric/Neurological: No anxiety, No depression, No seizure, No focal weakness, No syncope Hematologic: No bleeding abnormalities UXI-Naoxic-Abissi Hx Patient Social History Alcohol Use: Denies Use Recreational Drug Use: No Recent Foreign Travel: No Recent Infectious Disease Expo: No Physical Abuse Screen: No Sexual Abuse: No Immunizations Up To Date Date of Pneumonia Vaccine: Sep 01, 2018 Past Medical History PMH As described under Assessment. Allergies and Home Medications Allergies Coded Allergies: No Known Drug Allergies (Unverified , 04/01/19) Home Medications Budesonide/Formoterol Fumarate 10.2 Gm Hfa.aer.ad, 2 PUFF IH BID, (Reported) Cetirizine HCl 10 Mg Tablet, 10 MG PO DAILY, (Reported) Ibuprofen 200 Mg Tablet, 400-800 MG PO TID PRN for PAIN-MILD, (Reported) Ipratropium/Albuterol Sulfate 3 Ml Ampul.neb, 3 ML NEB Q6H PRN for SHORTNESS OF BREATH, (Reported) Spironolactone 25 Mg Tablet, 50 MG PO DAILY, (Reported) TAKES 2 (25MG) TABLETS Patient Home Medication List Home Medication List Reviewed: Yes Physical Exam-Cardiology Physical Exam Vital Signs/I&O 04/05/19 04/05/19 04/05/19 04/05/19 07:49 08:00 08:20 11:57 Temp 97.8 Pulse 97 Resp 22 B/P (MAP) 145/64 (91) Pulse Ox 94 100 96 O2 Delivery Nasal Cannula Nasal Cannula Nasal Cannula Nasal Cannula O2 Flow Rate 4.00 4.00 4.00 4.00 04/05/19 00:00 Intake Total 620 ml Output Total 475 ml Balance 145 ml Capillary Refill : Constitutional: appears stated age, AAO x 3; No apparent distress; well- developed, well-nourished HEENT: PERRL; No discharge; hearing is well preserved, oral hygience is good; No ulceration, No xanthelasmas are seen Neck: No carotid bruit; carotid pulses are 2 + bilaterally Respiratory: No accessory muscle use, No respiratory distress, No chest tender , No chest expansion is symmetric; chest is bilaterally symmetric; No lungs clear to percussion; lungs clear to auscultation; No crackles, No rhonchi, No rales, No stridor, No wheezing, No pleural rub, No other Cardiovascular: regular rate-rhythm; No irregularly irregular, No extra beats, No parasternal heave is noted, No JVD, No edema, No bradycardia, No tachycardia , No point of maximal impulse, No cardiac thrills are palpable; S1 and S2; No gallop/S3, No gallop/S4, No diastolic murmur, No systolic murmur, No friction rub, No click, No other Gastrointestinal: No tender, No soft, No round, No distended, No pulsatile mass , No organomegaly, No guarding, No rebound, No tenderness, No hernia, No mass, No audible bowel sounds, No abnormal bowel sounds, No abdominal bruits, No spleenomegaly, No other Rectal: deferred Extremities: No normal range of motion, No non-tender, No normal inspection, No pedal edema, No calf tenderness, No normal capillary refill, No pelvis stable , No calf tenderness, No inflammation, No pedal edema, No slow capillary refill , No swelling, No other, No abrasion, No clubbing, No cyanosis, No ecchymosis, No laceration, No no lower extremity edema bilateral, No significant edema, No tenderness, No wound Neurologic/Psychiatric: no motor/sensory deficits, alert, normal mood/affect, oriented x 3, power is 5/5 both on sides Skin: No normal color, No warm/dry, No cyanosis, No cool, No diaphoresis, No damp, No ecchymosis, No jaundice, No mottled, No pallor, No rash, No tattoos/ piercings, No ulcerations, No rash on exposed areas, No ulcerations on exposed areas, No other Data Review Labs Laboratory Tests 04/05/19 06:04: White Blood Count 13.7H, Red Blood Count 4.64, Hemoglobin 13.1, Hematocrit 42, Mean Corpuscular Volume 89, Mean Corpuscular Hemoglobin 28, Mean Corpuscular Hemoglobin Concent 32, Red Cell Distribution Width 15.0H, Platelet Count 513H, Mean Platelet Volume 9.0, Neutrophils (%) (Auto) 92H, Lymphocytes (%) (Auto) 4L , Monocytes (%) (Auto) 4, Eosinophils (%) (Auto) 0, Basophils (%) (Auto) 0, Neutrophils # (Auto) 12.5H, Lymphocytes # (Auto) 0.6L, Monocytes # (Auto) 0.5, Eosinophils # (Auto) 0.0, Basophils # (Auto) 0.0 Microbiology 04/03/19 Gram Stain - Final, Resulted 04/03/19 Sputum Culture - Preliminary, Resulted Strep Species, Alpha Hemolytic Escherichia coli A/P-Cardiology Assessment/Admission Diagnosis COPD exacerbation, Acute respiratory failure Plan Acute respiratory failure, significantly improved. COPD, on steroids, oxygen and inhalers. Shortness of breath, no significant cardiac workup. Will recommend an echocardiogram. One set of cardiac enzymes was negative. Thank you for your consultation. Please call me if you have any questions. Janis Castillo MD, FACP, FACC, FSCAI, FHRS, CCDS Interventional Cardiology Cardiac Electrophysiology Vascular Medicine and Endovascular Interventions Clinical Quality Measures DVT/VTE Risk/Contraindication: Risk Factor Score Per Nursin RFS Level Per Nursing on Admit: 4+=Very High Elroy CASTILLO MD April 05, 2019 14:37
[2019-04-05 16:15] VITALS: BP 141/64
[2019-04-05 23:45] VITALS: BP 132/60
[2019-04-06] MEDS: methylPREDNISolone 125 MG (Solu-MEDROL) VIAL IV SCH ×4 (00:07→18:26)
[2019-04-06] MEDS: RT-ALBUTEROL/IPRATROPIUM 3 ML (DUONEB) VIAL INH SCH ×6 (02:26→20:58)
[2019-04-06] MEDS: DOXYCYCLINE 100 MG (VIBRAMYCIN) TABLET PO SCH ×2 (05:59→16:36)
[2019-04-06] MEDS: CATHETER FLUSH 10 ML SYR IV SCH ×3 (05:59→19:41)
[2019-04-06 08:00] VITALS: BP 131/72
[2019-04-06] MEDS: FAMOTIDINE 20MG/2ML IV (PEPCID) IVP SCH (09:06)
[2019-04-06] MEDS: cefTRIAXone FOR IV USE 1,000 MG in WATER (STERILE) FOR INJECTION 10 ML IV SCH (09:07)
[2019-04-06] MEDS: ENOXAPARIN 40 MG/0.4 ML (LOVENOX) SYR SC SCH (09:07)
--- NOTE | 2019-04-06 11:46 | Progress Note-Hospitalist ---
Subjective HPI/CC On Admission Date Seen by Provider: April 06, 2019 Time Seen by Provider: 10:30 Subjective/Events-last exam Patient doing better Slept better Strep pneumo on sputum Cx Denies pain No falls + BM Weaned down to 2 liters of O2 her home level Review of Systems Pulmonary: Dyspnea Objective Exam Vital Signs Vital Signs Date Time Temp Pulse Resp B/P (MAP) Pulse Ox O2 Delivery O2 Flow Rate FiO2 04/06/19 16:00 98.3 85 20 147/76 (99) 92 High Flow N/C 3.00 Capillary Refill : General Appearance: No Apparent Distress, WD/WN, Chronically ill, Mild Distress HEENT: PERRL/EOMI, Pharynx Normal Neck: Supple Respiratory: Lungs Clear, Normal Breath Sounds, No Accessory Muscle Use, No Respiratory Distress, Decreased Breath Sounds Cardiovascular: Regular Rate, Rhythm, No Edema Gastrointestinal: Non Tender, Soft Rectal: Deferred Back: No CVA Tenderness Extremity: Non Tender, No Calf Tenderness, No Pedal Edema Neurologic/Psychiatric: Alert, Oriented x3 Skin: Warm/Dry Results/Procedures Lab Patient resulted labs reviewed. Assessment/Plan Assessment and Plan Assess & Plan/Chief Complaint Assessment per PCP: 1. Acute Exacerbation of COPD with Acute Bronchitis--Continue SVNs, Cont IV solumedrol, Doycycline started, Will add rocephin and repeat CXR 2. Hypoxia with Acute Respiratory Distress--s/p biPAP and Vapotherm now on 4 liters/min 3. Tachycardia/HTN--improved with low dose beta mireya 4. Anxiety related to BIPAP--has ativan IV prn Plan: Doing much better Monitor oxygen Diagnosis/Problems Diagnosis/Problems (1) COPD exacerbation Status: Acute (2) Hypoxia Status: Acute (3) Streptococcal infection NEC Status: Acute Clinical Quality Measures DVT/VTE Risk/Contraindication: Risk Factor Score Per Nursin RFS Level Per Nursing on Admit: 4+=Very High MARY MARTINEZ DO April 06, 2019 11:46
[2019-04-06 16:00] VITALS: BP 147/76
--- NOTE | 2019-04-06 17:48 | NUR ---
DR. MARTINEZ NOTIFIED OF MICROBIOLOGY SPUTUM CULTURE RESULTS AND MEDICATION SENSITIVITY RESULTS.
--- NOTE | 2019-04-06 18:18 | Cardiology Progress Note ---
Cardiology SOAP Progress Note Subjective: Improved shortness of breath. Objective: I&O/Vital Signs 04/06/19 04/06/19 04/06/19 04/06/19 06:51 08:00 08:00 10:38 Temp 97.7 Pulse 88 Resp 20 B/P (MAP) 131/72 (91) Pulse Ox 95 97 94 O2 Delivery Nasal Cannula Nasal Cannula High Flow N/C Nasal Cannula O2 Flow Rate 4.00 3.00 3.00 3.00 04/06/19 04/06/19 14:36 16:00 Temp 98.3 Pulse 85 Resp 20 B/P (MAP) 147/76 (99) Pulse Ox 96 92 O2 Delivery Nasal Cannula High Flow N/C O2 Flow Rate 2.00 3.00 04/06/19 00:00 Intake Total 1075 ml Output Total 1000 ml Balance 75 ml Weight (Pounds): 159 Weight (Ounces): 2.8 Weight (Calculated Kilograms): 72.639109 Constitutional: appears stated age, AAO x 3; No apparent distress; well- developed, well-nourished Respiratory: No accessory muscle use, No respiratory distress, No chest tender , No chest expansion is symmetric; chest is bilaterally symmetric; No lungs clear to percussion; lungs clear to auscultation; No crackles, No rhonchi, No rales, No stridor, No wheezing, No pleural rub, No other Cardiovascular: regular rate-rhythm; No irregularly irregular, No extra beats, No parasternal heave is noted, No JVD, No edema, No bradycardia, No tachycardia , No point of maximal impulse, No cardiac thrills are palpable; S1 and S2; No gallop/S3, No gallop/S4, No diastolic murmur, No systolic murmur, No friction rub, No click, No other Gastrointestional: No tender, No soft, No round, No distended, No pulsatile mass, No organomegaly, No guarding, No rebound, No tenderness, No hernia, No mass, No audible bowel sounds, No abnormal bowel sounds, No abdominal bruits, No spleenomegaly, No other Extremities: No normal range of motion, No non-tender, No normal inspection, No pedal edema, No calf tenderness, No normal capillary refill, No pelvis stable , No calf tenderness, No inflammation, No pedal edema, No slow capillary refill , No swelling, No other, No abrasion, No clubbing, No cyanosis, No ecchymosis, No laceration, No no lower extremity edema bilateral, No significant edema, No tenderness, No wound Neurologic/Psychiatric: no motor/sensory deficits, alert, normal mood/affect, oriented x 3, power is 5/5 both on sides Skin: No normal color, No warm/dry, No cyanosis, No cool, No diaphoresis, No damp, No ecchymosis, No jaundice, No mottled, No pallor, No rash, No tattoos/ piercings, No ulcerations, No rash on exposed areas, No ulcerations on exposed areas, No other Results/Procedures: Labs Microbiology 04/03/19 Gram Stain - Final, Complete 04/03/19 Sputum Culture - Final, Complete Usual upper respiratory danny Streptococcus pneumoniae A/P: Assessment/Dx: COPD exacerbation, Acute respiratory failure, Pulmonary hypertension, Mild diastolic dysfunction Plan: Acute respiratory failure, significantly improved. COPD, on steroids, oxygen and inhalers. Shortness of breath, likely also contribution from mild diastolic dysfunction. However unlikely the major contributing factor. Echocardiogram done on 04/06/2019 shows normal LV size and function. Mild concentric LVH with mild diastolic dysfunction. PA pressure 4550 mmHg. Mild pulmonary hypertension, follow clinically. LVH, mild diastolic dysfunction, follow clinically. Thank you for your consultation. Please call me if you have any questions. Janis Castillo MD, FACP, FACC, FSCAI, FHRS, CCDS Interventional Cardiology Cardiac Electrophysiology Vascular Medicine and Endovascular Interventions Elroy CASTILLO MD April 06, 2019 18:18
[2019-04-07 00:11] VITALS: BP 144/70
[2019-04-07] MEDS: methylPREDNISolone 125 MG (Solu-MEDROL) VIAL IV SCH ×3 (01:10→11:11)
[2019-04-07] MEDS: RT-ALBUTEROL/IPRATROPIUM 3 ML (DUONEB) VIAL INH SCH ×3 (03:01→11:10)
[2019-04-07] MEDS: DOXYCYCLINE 100 MG (VIBRAMYCIN) TABLET PO SCH (06:21)
[2019-04-07] MEDS: CATHETER FLUSH 10 ML SYR IV SCH ×2 (06:21→11:11)
[2019-04-07 08:00] VITALS: BP 146/65
[2019-04-07] MEDS ORDERED: FAMOTIDINE 20 MG (PEPCID) TABLET PO SCH (09:00)
--- NOTE | 2019-04-07 09:10 | NUR ---
prior to a.m. medications pulse was 98 bpm and b/p was 146/.
[2019-04-07] MEDS: ENOXAPARIN 40 MG/0.4 ML (LOVENOX) SYR SC SCH (10:37)
[2019-04-07] MEDS: cefTRIAXone FOR IV USE 1,000 MG in WATER (STERILE) FOR INJECTION 10 ML IV SCH ×2 (10:37→10:40)
--- NOTE | 2019-04-07 11:10 | NUR ---
SPO2 88% ON ROOM AIR @ REST. REPLACED O2 @ 1 LPM. SPO2 INCREASED TO 92%.
--- NOTE | 2019-04-07 12:13 | Discharge Inst-Simple/Standard ---
Discharge Inst-Standard Discharge Medications New, Converted or Re-Newed RX: Transmitted to Pharmacy Patient Instructions/Follow Up Plan of Care/Instructions/FU: Fwup 1 week Activity as Tolerated: Yes Discharge Diet: No Restrictions Planned Outpatient Orders/Ref. Oxygen at 1L NC continuously during day and resume home oxygen dose at night SHARMILA ODELL DO April 07, 2019 12:13
[2019-04-07] MEDS ORDERED: ACET325T49 PO (12:18)
[2019-04-07] MEDS ORDERED: DOXY100T2 PO (12:18)
[2019-04-07] MEDS ORDERED: PRD20T PO (12:18)
[2019-04-07] MEDS ORDERED: METO-352 PO (12:19)
[2019-04-07 14:13] VITALS: BP 146/65
--- NOTE | 2019-04-07 14:18 | NUR ---
CM/SS, respond to consult. DME: Patient has established services with [facility] for night O2. Patient will require continuous O2 at this time. [facility] [place], provided clinical and RT study in support of new O2 continuous orders. Agency confirmed they will deliver portable to patient room and partner with her and her spouse about home setup. Updated patient and unit RN.
--- NOTE | 2019-04-07 14:52 | NUR ---
OXYGEN DELIVERED AT THIS TIME FOR CONT USE AT HOME
--- NOTE | 2019-04-07 20:54 | Discharge Summary ---
Diagnosis/Chief Complaint Date of Admission April 01, 2019 at 10:45 Date of Discharge April 07, 2019 at 15:04 Discharge Date: April 07, 2019 Discharge Diagnosis 1. Acute Respiratory Failure with Hypoxia--improved, down to 1L NC 2. Acute Exacerbation of COPD with Acute Bronchitis--improved 3. Hypertension/Tachycardia--improved 4. Anxiety--improved Reason Hospital Visit This is a 73 year old female with known COPD who presented to my office with worsening shortness of air. She was found to be hypoxic with oxygen saturation of 88%. She was placed on oxygen in the office and directly admitted to the hospital for treatment. Discharge Summary Hospital Course Hospital Course This is a 73 year old female with known COPD who presented to my office with worsening shortness of air. She was found to be hypoxic with oxygen saturation of 88%. She was placed on oxygen in the office and directly admitted to the hospital for treatment. She was given high dose IV solumedrol and routine SVNS with duoneb. By the second hospital day she was feeling much better so her IV solumedrol was weaned to 60mg IV q6hrs. However, the following hospital day, she was more short of air so a CT scan of the chest was done which showed possible infiltrates. She was already on doxycycline so rocephin was added to her regimen. That evening she had worsening respiratory distress and had to be put on BIPAP. She had to be given IV ativan due to the anxiety associated with the BIPAP. Pulmonology was consulted and the patient was able to be weaned to vapotherm and by the time of discharge she has been weaned down to 1 liter of oxygen via nasal cannula. She is feeling much better and anxious to go home. She also required metoprolol for both elevated blood pressure and pulse during her hospital stay. She will be sent home on an oral prednisone taper with routine SVNS with duoneb q4hrs as well as continuous oxygen at 1L via NC. She will followup with me in my office in 1 week and will be scheduled for pulmonary rehab. We did discuss the need to have a fwup CT scan of her chest in at least 12 weeks to make sure the infiltrates have cleared. Labs Laboratory Tests 04/05/19 06:04: White Blood Count 13.7H, Red Cell Distribution Width 15.0H, Platelet Count 513H , Neutrophils (%) (Auto) 92H, Lymphocytes (%) (Auto) 4L, Neutrophils # (Auto) 12.5H, Lymphocytes # (Auto) 0.6L Procedures None. Discharge Physical Examination Allergies: Coded Allergies: No Known Drug Allergies (Unverified , 04/01/19) Vitals & I&Os Vital Signs Date Time Temp Pulse Resp B/P (MAP) Pulse Ox O2 Delivery O2 Flow Rate FiO2 04/07/19 14:13 98 18 146/65 88 Nasal Cannula 1.00 04/07/19 08:00 98.2 General Appearance: Alert, Oriented X3, Cooperative, Mild Distress (wearing oxygen) Respiratory: Clear to Auscultation Cardiovascular: Regular Rate Abdominal: Normal Bowel Sounds, Soft, No Tenderness Psych/Mental Status: Mental Status NL, Mood NL Discharge Home Medications Reviewed and agree with Discharge Medication list on patient's Discharge Instruction sheet Instructions to Patient/Family Please see electronic discharge instructions given to patient. Clinical Quality Measures DVT/VTE Risk/Contraindication: Risk Factor Score Per Nursin RFS Level Per Nursing on Admit: 4+=Very High SHARMILA ODELL DO April 07, 2019 20:54
== END 2019-04-07 15:04 | disposition home or self-care (01) | DRG 190 ==
LOC: EDSTATUS 09:08 → INTOOBSV 10:45 → UNDOADMOB 10:45 → 4TH 10:45 → OBSVTOIN 10:45 → 4TH 04-04 12:31 → UNDODISIN 04-07 15:04
PROVIDERS: ADMIT Family Medicine; ATTEND Family Medicine
DX: J44.0 Chronic obstructive pulmonary disease with (acute) lower respiratory infection (principal); J20.2 Acute bronchitis due to streptococcus; J96.01 Acute respiratory failure with hypoxia; I11.9 Hypertensive heart disease without heart failure; I27.20 Pulmonary hypertension, unspecified; R00.0 Tachycardia, unspecified; F41.9 Anxiety disorder, unspecified
CPT/HCPCS: 36415; 36600; 71045; 71046; 71250; 71275; 80053; 82805; 84484; 85007; 85025; 85027; 87070; 87077; 87184; 87205; 93306; 93970; 94640; 94660; 94760

== ENCOUNTER 2019-05-12 13:56 | Outpatient (RCR) | payer MEDICARE, OTHER ==
[~2019-05-12 13:56] MED LIST changes: +ACET325T49 PO; +BUDE10.2 IH; +CETI10TA20 PO; +DOXY100T2 PO; +IBUP-30 PO; +IPRA3AMP31 NEB; +METO-352 PO; +SPIR25TA PO
[2019-05-20 10:55] VITALS: BP 135/60
[2019-05-20 11:40] VITALS: BP 112/68
[2019-05-22 10:40] VITALS: BP 162/60
[2019-05-22 11:35] VITALS: BP 130/70
[2019-05-27 11:00] VITALS: BP 130/60
[2019-05-27 11:25] VITALS: BP 121/60
[2019-06-03 10:45] VITALS: BP 130/60
[2019-06-03 12:00] VITALS: BP 90/60
[2019-06-05 10:45] VITALS: BP 140/60
[2019-06-05 12:00] VITALS: BP 103/50
[2019-06-10 10:45] VITALS: BP 140/60
[2019-06-10 11:47] VITALS: BP 148/60
[2019-06-12 10:10] VITALS: BP 140/66
[2019-06-12 11:45] VITALS: BP 122/60
[2019-06-17 10:45] VITALS: BP 120/60
[2019-06-17 12:00] VITALS: BP 130/76
[2019-06-19 10:45] VITALS: BP 140/80
[2019-06-19 12:00] VITALS: BP 150/70
[2019-07-01 10:45] VITALS: BP 127/60
[2019-07-01 12:00] VITALS: BP 160/60
[2019-07-03 10:42] VITALS: BP 130/60
[2019-07-03 11:40] VITALS: BP 123/70
[2019-07-08 10:45] VITALS: BP 130/60
[2019-07-08 12:00] VITALS: BP 130/70
[2019-07-10 10:45] VITALS: BP 130/62
[2019-07-10 11:50] VITALS: BP 114/60
[2019-07-15 10:45] VITALS: BP 150/70
[2019-07-15 11:40] VITALS: BP 116/58
[2019-07-17 10:40] VITALS: BP 112/54
[2019-07-17 11:35] VITALS: BP 130/70
[2019-07-22 10:45] VITALS: BP 102/60
[2019-07-22 11:51] VITALS: BP 130/60
[2019-07-24 11:00] VITALS: BP 120/70
[2019-07-24 11:50] VITALS: BP 130/62
[2019-07-29 10:30] VITALS: BP 140/50
[2019-07-29 11:40] VITALS: BP 150/70
[2019-07-31 10:45] VITALS: BP 123/57
[2019-07-31 12:07] VITALS: BP 150/70
[2019-08-05 10:40] VITALS: BP 120/70
[2019-08-05 12:01] VITALS: BP 122/60
[2019-08-07 10:45] VITALS: BP_SYST 120; BP_SYST 130; BP_DIAS 45; BP_DIAS 70
[2019-08-07 12:16] VITALS: BP_SYST 122; BP_SYST 150; BP_DIAS 60; BP_DIAS 80
[2019-08-12 10:45] VITALS: BP 130/64
[2019-08-12 11:55] VITALS: BP 140/80
== END 2019-08-10 | disposition home or self-care (01) ==
LOC: PULM 13:56
PROVIDERS: ATTEND Family Medicine
DX: J44.1 Chronic obstructive pulmonary disease with (acute) exacerbation (principal); R09.02 Hypoxemia
CPT/HCPCS: 99211

== ENCOUNTER → 2019-07-29 | Outpatient (CLI) | payer MEDICARE, OTHER ==
[~2019-07-29] MED LIST changes: +HOLD METFORMIN - RECEIVED CONTRAST 20 ML VIAL IV SCH; +IOHEXOL 350 MG/ML 100 ML (OMNIPAQUE 350) VIAL IV ONE; +NS 100 ML (IVPB) BAG IV ONE
[2019-07-29 12:34] LABS: BUN/CREATININE RATIO 25; CREATININE SERUM 0.72 MG/DL (0.60-1.30); GFR ESTIMATED > 60
--- NOTE | 2019-07-29 13:37 | Diagnostic Imaging Report ---
PROCEDURE: CT chest with contrast only. TECHNIQUE: Multiple contiguous axial images were obtained through the chest after administration of intravenous contrast. Auto Exposure Controls were utilized during the CT exam to meet ALARA standards for radiation dose reduction. INDICATION: Dyspnea and recent pneumonia. Comparison is made to study of 04/04/2019. FINDINGS: There has been improvement in aeration of both lungs with mild residual diffuse centrilobular emphysema. There is mild bronchiectasis involving primarily the right upper lobe. However, no consolidation is identified. There is no significant pleural or pericardial fluid. Mild interstitial prominence in the right lung base may be due to scarring. There is no significant pleural or pericardial fluid no pathologic adenopathy is identified. Fat-containing prominent precarinal lymph node has a generally stable appearance. IMPRESSION: Background emphysema, right upper lobe bronchiectasis and right basilar scarring. No acute abnormality is detected. Note is also made of mild subcentimeter nodularity within the left breast. Correlation with sonography would be useful. Dictated by: Dictated on workstation # [id number]
== END ==
LOC: RAD 12:05
PROVIDERS: ATTEND Nurse Practitioner Family
DX: J43.9 Emphysema, unspecified (principal); J47.9 Bronchiectasis, uncomplicated; N63.20 Unspecified lump in the left breast, unspecified quadrant; Z87.01 Personal history of pneumonia (recurrent)
CPT/HCPCS: 36415; 71260; 82565; 84520

== ENCOUNTER 2019-08-14 13:15 | Outpatient (RCR) | payer MEDICARE, OTHER ==
[2019-08-14 10:45] VITALS: BP 150/75
[2019-08-14 12:00] VITALS: BP 132/60
[~2019-08-14 13:15] MED LIST changes: -HOLD METFORMIN - RECEIVED CONTRAST 20 ML VIAL IV SCH; -IOHEXOL 350 MG/ML 100 ML (OMNIPAQUE 350) VIAL IV ONE; -NS 100 ML (IVPB) BAG IV ONE
[2019-08-19 10:45] VITALS: BP 150/60
[2019-08-19 11:56] VITALS: BP 145/40
[2019-08-26 10:45] VITALS: BP 118/60
[2019-08-26 12:00] VITALS: BP 112/70
[2019-08-28 10:45] VITALS: BP 150/65
[2019-08-28 12:01] VITALS: BP 122/70
[2019-09-16] MEDS ORDERED: METO-352 PO (10:03)
[2019-09-16] MEDS ORDERED: CEFD300C3 PO (10:03)
[2019-09-16] MEDS ORDERED: FLUT16SP22 NS (10:03)
[2019-09-16] MEDS ORDERED: METH4TAB PO (10:03)
[2019-09-16] MEDS ORDERED: MONT10TA21 PO (10:03)
[2019-09-16] MEDS ORDERED: FLUT1DIS26 IH (10:04)
[2019-09-18] MEDS ORDERED: IPRA3AMP31 INH (13:15)
[2019-09-18] MEDS ORDERED: BACL10TA PO (13:15)
[2019-09-18] MEDS ORDERED: PRD20T PO (13:15)
[2019-09-18] MEDS ORDERED: AZIT250T12 PO (13:15)
[2019-09-30 10:45] VITALS: BP 130/80
[2019-09-30 11:54] VITALS: BP 105/60
== END 2019-11-12 | disposition home or self-care (01) ==
LOC: PULM 13:15
PROVIDERS: ATTEND Family Medicine
DX: J44.1 Chronic obstructive pulmonary disease with (acute) exacerbation (principal)

== ENCOUNTER 2019-09-15 15:27 | Inpatient (IN) | payer MEDICARE, OTHER ==
[~2019-09-15] VITALS: Ht 160 cm; Wt 73.8 kg
--- NOTE | 2019-09-15 16:15 | NUR ---
RAKEL JORDAN admitted to room 414-1, with an admitting diagnosis of BRONCHITIS AND COPD EXACERBATION, on 09/15/19 from DIRECT ADMIT via AMBULATORY, accompanied by HER . RAKEL JORDAN introduced to surroundings, call light, bed controls, phone, TV, temperature control, lights, meal times, smoking policy, visitor policy, side rail policy, bathrooms and showers. Patient Rights given to patient in the handbook. RAKEL JORDAN verbalizes understanding that [facility] is not responsible for the loss or damage to any personal effects or valuables that are kept in the patients posession during their hospitalization. The following Patient Care Plans were discussed with the PATIENT: Discharge Planning, BRONCHITIS, COPD and KNOWLEDGE DEFICIT. RAKEL JORDAN verbalizes understanding of Interdisciplinary Patient Education. Patient and/or family were informed about the Rapid Response Team and its purpose.
[2019-09-15] MEDS ORDERED: PATIENT MAY USE OWN MEDS, ALL PO SCH (16:45)
[2019-09-15 17:01] VITALS: BP 150/67
[2019-09-15 17:24] LABS: BASOPHILS % (AUTO) 0 % (0-10); EOSINOPHILS % (AUTO) 0 % (0-10); HEMATOCRIT 43 % (35-52); LYMPHOCYTES % (AUTO) 18 % (12-44); MEAN CORPUSCULAR HEMOGLOBIN 28 PG (25-34); MEAN CORPUSCULAR HGB CONC 32 G/DL (32-36); MEAN CORPUSCULAR VOLUME 88 FL (80-99); MONOCYTES # (AUTO) 1.5 X 10^3 (0.0-1.0); MONOCYTES % (AUTO) 13 % (0-12); NEUTROPHILS % (AUTO) 69 % (42-75); PLATELET COUNT 371 10^3/uL (130-400); RED CELL DISTRIBUTION WIDTH 15.2 % (10.0-14.5); WHITE BLOOD COUNT 11.5 10^3/uL (4.3-11.0)
[2019-09-15 17:24] LABS: ABG BASE EXCESS 7.7 MMOL/L (-2.5-2.5); ABG OXYGEN SATURATION 97 % (94-100); ABG PCO2 48 MMHG (35-45); ABG PH 7.44 (7.37-7.43); ABG PO2 93 MMHG (79-93); ABG TCO2 33.6 MMOL/L (21.0-31.0)
--- NOTE | 2019-09-15 17:24 | History & Physical ---
History of Present Illness History of Present Illness Reason for visit/HPI This is a 74 year old female with severe oxygen dependant COPD who presented to my office with ongoing cough and shortness of air. She had been seen the previous week and given 2 days of Rocephin IM and Solumedrol IM. She was much improved after 2 days of this treatment so we was switched to oral cefdinir and a prednisone taper. She worsened over the weekend so she presented back for inessa luation and due to failed outpatient treatment, it was decided to admit her directly to the hospital. Date of Admission Sep 15, 2019 at 16:10 Date Seen by a Provider: Sep 15, 2019 Time Seen by a Provider: 15:30 I consulted on this patient on 09/15/19 17:15 Attending Physician Sharmila Basilio DO Admitting Physician Sharmila Basilio DO Consult Allergies and Home Medications Allergies Coded Allergies: No Known Drug Allergies (Unverified , 04/01/19) Home Medications Acetaminophen 325 Mg Tablet, 650 MG PO Q4H PRN for PAIN-MILD Prescribed by: SHARMILA BASILIO on 04/07/19 1218 Budesonide/Formoterol Fumarate 10.2 Gm Hfa.aer.ad, 2 PUFF IH BID, (Reported) Cetirizine HCl 10 Mg Tablet, 10 MG PO DAILY, (Reported) Doxycycline Hyclate 100 Mg Tablet, 100 MG PO BID@,17 Prescribed by: SHARMILA BASILIO on 04/07/19 1218 Ipratropium/Albuterol Sulfate 3 Ml Ampul.neb, 3 ML NEB Q6H PRN for SHORTNESS OF BREATH, (Reported) Metoprolol Succinate 50 Mg Tab.er.24h, 50 MG PO DAILY Prescribed by: SHARMILA BASILIO on 04/07/19 1219 Prednisone 20 Mg Tab, 0 PO DAILY 1 tab 3 times a day for 3 days then 1 tab 2 times a day for 3 days then 1 tab daily for 3 days Prescribed by: SHARMILA BASILIO on 04/07/19 1218 Patient Home Medication List Home Medication List Reviewed: Yes Past Dbtggxr-Jnrgpi-Uatqmf Hx Past Med/Social Hx: Reviewed Nursing Past Med/Soc Hx Patient Social History Marrital Status: Alcohol Use: Denies Use Recreational Drug Use: No Smoking Status: Former Smoker Former Smoker, Quit: Nov 26, 1998 Physical Abuse Screen: No Sexual Abuse: No Recent Foreign Travel: No Contact w/other who traveled: No Recent Hopitalizations: No Recent Infectious Disease Expo: No Immunizations Up To Date Pediatric: No Date of Pneumonia Vaccine: Sep 01, 2018 Seasonal Allergies Seasonal Allergies: No Past Medical History Currently Using CPAP: No Currently Using BIPAP: No Reproductive: No Loss of Vision: Denies Hearing Impairment: Hard of Hearing, Bilateral Hearing Aide History of Blood Disorders: No Adverse Reaction to Blood Wu: No Family History Alcoholism G8 SISTER, Myocardial infarction G8 BROTHER, Neoplasm 19 FATHER, , Age:78 (LUNG CA) 19 MOTHER, , Age:59 (LUNG CANCER) Review of Systems Constitutional: weakness EENTM: nose congestion Respiratory: cough, dyspnea on exertion, short of breath, wheezing Gastrointestinal: No RUQ, No LUQ, No RLQ, No LLQ, No no symptoms reported, No see HPI, No abdominal pain, No constipation, No diarrhea, No dysphagia, No hematemesis, No heartburn, No jaundice, No loss of appetite, No melena, No nausea, No vomiting, No other Genitourinary: No no symptoms reported, No see HPI, No decreased output, No discharge, No dysuria, No frequency, No hematuria, No hesitancy, No incontinence, No nocturia, No pain, No other Musculoskeletal: muscle weakness Skin: No no symptoms reported, No see HPI, No change in color, No change in hair/nails, No dryness, No hx of skin cancer, No lesions, No lumps, No pruritus, No rash, No other Psychiatric/Neurological: Weakness Physical Exam Vital Signs Vital Signs - First Documented 09/15/19 09/15/19 16:30 17:01 Temp 36.5 Pulse 90 Resp 18 B/P (MAP) 150/67 Pulse Ox 89 O2 Delivery Nasal Cannula O2 Flow Rate 2.00 Capillary Refill : Height, Weight, BMI Height: 5'2.00" Weight: 166lbs. 2.0oz. 72.027310sp; 28.63 BMI Method:Stated General Appearance: Moderate Distress HEENT: Normal ENT Inspection Neck: Supple Respiratory: Decreased Breath Sounds, Respiratory Distress, Rhonci, Wheezing Cardiovascular: Regular Rate, Rhythm, Systolic Murmur Gastrointestinal: Normal Bowel Sounds, Non Tender, Soft Back: No CVA Tenderness Extremity: Non Tender, No Calf Tenderness, No Pedal Edema Neurologic/Psychiatric: Alert, Oriented x3 Skin: Warm/Dry Assessment/Plan Assessment and Plan 1. Acute Respiratory Distress--admit and check ABGs 2. Oxygen Dependant COPD with acute exacerbation--admit and start IV solumedrol as well routine SVNS with duoneb 3. Acute Bronchitis--check CXR and cover with Rocephin/Zithromax, check sputum culture 4. Hypertension/Tachycardia--resume low dose metoprolol Admission Diagnosis Admission Status: Inpatient Order (span 2 midnights) Reason for Inpatient Admission: Failed outpatient treatment so will need IV solumedrol and IV antibiotics Clinical Quality Measures DVT/VTE Risk/Contraindication: Risk Factor Score Per Nursin RFS Level Per Nursing on Admit: 4+=Very High SHARMILA BASILIO DO Sep 15, 2019 17:24
[2019-09-15 17:25] LABS: ALLENS TEST POS; VENTILATOR NO
[2019-09-15] MEDS ORDERED: DIAZEPAM 5 MG (VALIUM) TABLET PO NR (17:25)
[2019-09-15] MEDS ORDERED: AZITHROMYCIN INJECTION 500 MG in NS (IVPB) 250 ML IV SCH (17:25)
[2019-09-15 17:26] LABS: PATIENT TEMP 36.5
[2019-09-15 17:27] LABS: INSPIRED O2 2L
--- NOTE | 2019-09-15 17:28 | Diagnostic Imaging Report ---
INDICATION: Dyspnea. COMPARISON: CT scan of 07/29/2019. FINDINGS: Obstructive interstitial lung disease is again noted. No acute infiltrates are demonstrated. The heart is not enlarged. There is no pulmonary edema. No hilar adenopathy. No pneumothorax or pleural effusion. IMPRESSION: Obstructive interstitial lung disease without evidence of acute infiltrates. No pneumothorax. Dictated by: Dictated on workstation # [id number]
[2019-09-15] MEDS ORDERED: CATHETER FLUSH 10 ML SYR IV PRN (17:30)
[2019-09-15] MEDS: methylPREDNISolone 125 MG (Solu-MEDROL) VIAL IVP SCH ×2 (17:44→23:59)
[2019-09-15] MEDS: ENOXAPARIN 40 MG/0.4 ML (LOVENOX) SYR SC SCH (17:45)
[2019-09-15 17:50] LABS: ALANINE AMINOTRANSFERASE 23 U/L (0-55); ALBUMIN 4.3 GM/DL (3.2-4.5); ALKALINE PHOSPHATASE 91 U/L (40-136); BILIRUBIN,TOTAL 0.4 MG/DL (0.1-1.0); BUN/CREATININE RATIO 27; CALCIUM 9.8 MG/DL (8.5-10.1); CARBON DIOXIDE 31 MMOL/L (21-32); CHLORIDE 97 MMOL/L (98-107); CREATININE SERUM 0.88 MG/DL (0.60-1.30); GFR ESTIMATED > 60; GLUCOSE 110 MG/DL (70-105); POTASSIUM 4.5 MMOL/L (3.6-5.0); SODIUM 140 MMOL/L (135-145); TOTAL PROTEIN 6.9 GM/DL (6.4-8.2)
[2019-09-15] MEDS: RT-ALBUTEROL/IPRATROPIUM 3 ML (DUONEB) VIAL INH SCH ×2 (18:18→21:25)
--- NOTE | 2019-09-15 18:37 | NUR ---
CALLED DR ODELL -PATIENT IS ASKING FOR MEDICATION FOR HER HEARTBURN
[2019-09-15] MEDS: CALCIUM CARBONATE 500 MG (TUMS) TAB.CHEW PO PRN (18:45)
[2019-09-15] MEDS: cefTRIAXone FOR IV USE 1,000 MG in WATER (STERILE) FOR INJECTION 10 ML IV SCH (18:46)
[2019-09-15] MEDS: ACETAMINOPHEN 500 MG TAB (TYLENOL) PO PRN (18:49)
[2019-09-15] MEDS ORDERED: FLU QUADRIvalent (5+ YOA) 2019-2020 (AFLURIA) 0.5 ML IM ONE (19:45)
[2019-09-15 20:20] VITALS: BP 145/71
[2019-09-15] MEDS: PANTOPRAZOLE 40 MG (PROTONIX) TAB PO SCH (21:57)
[2019-09-15] MEDS: CATHETER FLUSH 10 ML SYR IV SCH (21:58)
[2019-09-16 00:38] VITALS: BP 135/74
[2019-09-16] MEDS: RT-ALBUTEROL/IPRATROPIUM 3 ML (DUONEB) VIAL INH SCH ×6 (01:58→22:44)
[2019-09-16 04:15] VITALS: BP 148/80
[2019-09-16] MEDS: methylPREDNISolone 125 MG (Solu-MEDROL) VIAL IVP SCH ×4 (06:14→23:25)
[2019-09-16] MEDS: PANTOPRAZOLE 40 MG (PROTONIX) TAB PO SCH ×2 (06:14→20:56)
[2019-09-16] MEDS: CATHETER FLUSH 10 ML SYR IV SCH ×3 (06:15→20:57)
[2019-09-16 08:00] VITALS: BP 131/84
[2019-09-16] MEDS ORDERED: MONT10TA21 PO (10:03)
[2019-09-16] MEDS ORDERED: METH4TAB PO (10:03)
[2019-09-16] MEDS ORDERED: CEFD300C3 PO (10:03)
[2019-09-16] MEDS ORDERED: FLUT16SP22 NS (10:03)
[2019-09-16] MEDS ORDERED: METO-352 PO (10:03)
[2019-09-16] MEDS ORDERED: FLUT1DIS26 IH (10:04)
--- NOTE | 2019-09-16 10:04 | NUR ---
CALLED [facility] FOR A LIST OF RECENTLY FILLED MEDICATIONS. THE PATIENT LISTED WHAT SHE IS TAKING AND I COMPARED WITH WHAT WAS FILLED AT [facility]. [facility] FILLED: 09-12-19 MEDROL DOSEPAK UD 09-12-19 CEFDINIR 300MG BID X 7 DAYS 09-01-19 FLONASE 2 SPRAYS EN HS 08-21-19 SINGULAIR 10MG HS 08-12-19 ADVAIR 250/50 BID #3 08-12-19 TOPROL XL 50MG DAILY #90 SHE STATES SHE ALSO TAKES ZYRTEC 10MG DAILY OTC.
[2019-09-16] MEDS: ACETAMINOPHEN 500 MG TAB (TYLENOL) PO PRN (10:19)
[2019-09-16 12:00] VITALS: BP 130/77
[2019-09-16] MEDS ORDERED: METHYL SALICYLATE/MENTHOL (BENGAY, MUSCLE RUB) 3 OZ TUBE TP PRN (13:00)
--- NOTE | 2019-09-16 13:03 | Progress Note ---
Subjective Date Seen by a Provider: Sep 16, 2019 Time Seen by a Provider: 13:00 Subjective/Events-last exam Fwup COPD with acute exac, acute bronchitis. C/O left neck tightness/burning. Breathing is better. Objective Exam Vital Signs Date Time Temp Pulse Resp B/P (MAP) Pulse Ox O2 Delivery O2 Flow Rate FiO2 09/16/19 10:55 96 Nasal Cannula 2.00 09/16/19 08:00 35.8 77 24 131/84 (100) 95 Nasal Cannula 2.00 09/16/19 07:13 94 Nasal Cannula 2.00 09/16/19 04:15 35.0 79 20 148/80 (102) 97 Nasal Cannula 2.00 09/16/19 01:58 96 Nasal Cannula 2.00 09/16/19 00:38 36.2 76 20 135/74 (94) 94 Nasal Cannula 2.00 09/15/19 21:25 92 Nasal Cannula 2.00 09/15/19 20:20 36.0 77 20 145/71 (95) 94 Nasal Cannula 2.00 09/15/19 20:10 97 Nasal Cannula 2.00 09/15/19 18:18 94 Nasal Cannula 2.00 09/15/19 17:01 36.5 90 18 150/67 89 Nasal Cannula 2.00 09/15/19 16:30 Nasal Cannula 2.00 I & O 09/16/19 07:00 Intake Total 710 ml Balance 710 ml Capillary Refill : General Appearance: No Apparent Distress Neck: Supple, Other (left trapezius area tender/tight) Respiratory: Decreased Breath Sounds Cardiovascular: Regular Rate, Rhythm, Systolic Murmur Extremity: Non Tender, No Calf Tenderness, No Pedal Edema Neurologic/Psychiatric: Alert, Oriented x3 Skin: Warm/Dry Results Lab Laboratory Tests 09/15/19 14:15: White Blood Count 11.5H, Red Blood Count 4.96, Hemoglobin 14.0, Hematocrit 43, Mean Corpuscular Volume 88, Mean Corpuscular Hemoglobin 28, Mean Corpuscular Hemoglobin Concent 32, Red Cell Distribution Width 15.2H, Platelet Count 371, Mean Platelet Volume 9.0, Neutrophils (%) (Auto) 69, Lymphocytes (%) (Auto) 18, Monocytes (%) (Auto) 13H, Eosinophils (%) (Auto) 0, Basophils (%) (Auto) 0, Ama trophils # (Auto) 8.0H, Lymphocytes # (Auto) 2.0, Monocytes # (Auto) 1.5H, Eosinophils # (Auto) 0.0, Basophils # (Auto) 0.0, Sodium Level 140, Potassium Level 4.5, Chloride Level 97L, Carbon Dioxide Level 31, Anion Gap 12, Blood Urea Nitrogen 24H, Creatinine 0.88, Estimat Glomerular Filtration Rate > 60, BUN/C reatinine Ratio 27, Glucose Level 110H, Calcium Level 9.8, Corrected Calcium 9.6, Total Bilirubin 0.4, Aspartate Amino Transf (AST/SGOT) 13, Alanine Aminotransferase (ALT/SGPT) 23, Alkaline Phosphatase 91, Total Protein 6.9, Albumin 4.3 09/15/19 17:05: Blood Gas Puncture Site LT RD, Blood Gas Patient Temperature 36.5, Arterial B lood pH 7.44H, Arterial Blood Partial Pressure CO2 48H, Arterial Blood Partial Pressure O2 93, Arterial Blood HCO3 32H, Arterial Blood Total CO2 33.6H, Arterial Blood Oxygen Saturation 97, Arterial Blood Base Excess 7.7H, Marshal Test POS, Blood Gas Ventilator Setting NO, Blood Gas Inspired Oxygen 2L Assessment/Plan Assessment/Plan Assess & Plan/Chief Complaint 1. COPD with Acute Exacerbation--cont IV solumedrol, SVNS, oxygen 2. Acute Bronchitis--continue Rocephin, Zithromax 3. HTN/Tachycardia--low dose metoprolol restarted 4. Left Cervicalgia/Muscle Spasm--add baclofen, muscle rub Clinical Quality Measures Admission Status Admission Dx 1. Acute Respiratory Distress--admit and check ABGs 2. Oxygen Dependant COPD with acute exacerbation--admit and start IV solumedrol as well routine SVNS with duoneb 3. Acute Bronchitis--check CXR and cover with Rocephin/Zithromax, check sputum culture 4. Hypertension/Tachycardia--resume low dose metoprolol DVT/VTE Risk/Contraindication: Risk Factor Score Per Nursin RFS Level Per Nursing on Admit: 4+=Very High SHARMILA ODELL DO Sep 16, 2019 13:03
[2019-09-16] MEDS ORDERED: PANTOPRAZOLE 40 MG (PROTONIX) TAB PO NR (13:15)
[2019-09-16] MEDS: BACLOFEN 10 MG (LIORESAL) TAB PO SCH ×2 (15:03→20:56)
--- NOTE | 2019-09-16 15:30 | NUR ---
Pastoral care visit.
[2019-09-16 16:06] VITALS: BP 148/75
[2019-09-16] MEDS: ENOXAPARIN 40 MG/0.4 ML (LOVENOX) SYR SC SCH (18:36)
[2019-09-16] MEDS: cefTRIAXone FOR IV USE 1,000 MG in WATER (STERILE) FOR INJECTION 10 ML IV SCH (18:36)
[2019-09-16 20:55] VITALS: BP 155/65
[2019-09-16] MEDS: CALCIUM CARBONATE 500 MG (TUMS) TAB.CHEW PO PRN (23:24)
[2019-09-17 00:19] VITALS: BP 145/72
[2019-09-17] MEDS: RT-ALBUTEROL/IPRATROPIUM 3 ML (DUONEB) VIAL INH SCH ×6 (02:37→22:34)
[2019-09-17] MEDS: methylPREDNISolone 125 MG (Solu-MEDROL) VIAL IVP SCH ×2 (05:40→12:20)
[2019-09-17] MEDS: CATHETER FLUSH 10 ML SYR IV SCH ×3 (05:40→22:00)
[2019-09-17] MEDS: PANTOPRAZOLE 40 MG (PROTONIX) TAB PO SCH ×2 (05:40→20:56)
--- NOTE | 2019-09-17 07:34 | NUR ---
patient is sitting on the side of the bed; patient had left her hearing aid in the restroom so RT went and got it and gave it to the patient so she could put it in. Patient was given her Duoneb SVN BT via MP and she tolerated it well. No signs of distress was noted at this time. She is currently on 2 L NC which is what she uses at home continuously.
[2019-09-17 08:00] VITALS: BP 112/57
[2019-09-17] MEDS: BACLOFEN 10 MG (LIORESAL) TAB PO SCH ×3 (08:20→20:56)
[2019-09-17] MEDS: AZITHROMYCIN 250 MG TAB (ZITHROMAX) PO SCH (08:20)
[2019-09-17] MEDS ORDERED: PANTOPRAZOLE 40 MG (PROTONIX) TAB PO SCH (09:00)
[2019-09-17] MEDS ORDERED: methylPREDNISolone 40 MG/ML (Solu-MEDROL) VIAL IVP SCH (14:00)
[2019-09-17 16:00] VITALS: BP 136/70
--- NOTE | 2019-09-17 17:56 | Progress Note ---
Subjective Date Seen by a Provider: Sep 17, 2019 Time Seen by a Provider: 17:54 Subjective/Events-last exam Fwup COPD with acute exac, acute bronchitis, left trapezius/neck pain. Breathing is improving. Baclofen has helped left trapezius/neck spasm. Objective Exam Vital Signs Date Time Temp Pulse Resp B/P (MAP) Pulse Ox O2 Delivery O2 Flow Rate FiO2 09/17/19 16:00 36.7 91 20 136/70 (92) 93 Nasal Cannula 2.00 09/17/19 14:44 95 Nasal Cannula 2.00 09/17/19 10:35 93 Nasal Cannula 2.00 09/17/19 08:00 Nasal Cannula 2.00 09/17/19 08:00 36.2 79 18 112/57 (75) 94 Nasal Cannula 2.00 09/17/19 07:26 93 Nasal Cannula 2.00 09/17/19 02:37 96 Nasal Cannula 2.00 09/17/19 00:19 36.7 92 23 145/72 (96) 92 Nasal Cannula 2.00 09/16/19 22:44 95 Nasal Cannula 2.00 09/16/19 20:55 36.6 93 24 155/65 (95) 93 Nasal Cannula 2.00 09/16/19 20:00 Nasal Cannula 2.00 09/16/19 18:54 94 Nasal Cannula 2.00 I & O 09/17/19 07:00 Intake Total 1300 ml Output Total 1000 ml Balance 300 ml Capillary Refill : General Appearance: Mild Distress (respiratory) Neck: Supple Respiratory: Lungs Clear, Decreased Breath Sounds Cardiovascular: Regular Rate, Rhythm Gastrointestinal: normal bowel sounds, non tender, soft Extremity: Non Tender, No Calf Tenderness, No Pedal Edema Neurologic/Psychiatric: Alert, Oriented x3 Skin: Warm/Dry Assessment/Plan Assessment/Plan Assess & Plan/Chief Complaint 1. COPD with Acute Exacerbation--wean IV solumedrol, continue SVNS, oxygen 2. Acute Bronchitis--continue Rocephin, Zithromax 3. HTN/Tachycardia--low dose metoprolol restarted 4. Left Cervicalgia/Muscle Spasm--continue baclofen, muscle rub Clinical Quality Measures Admission Status Admission Dx 1. Acute Respiratory Distress--admit and check ABGs 2. Oxygen Dependant COPD with acute exacerbation--admit and start IV solumedrol as well routine SVNS with duoneb 3. Acute Bronchitis--check CXR and cover with Rocephin/Zithromax, check sputum culture 4. Hypertension/Tachycardia--resume low dose metoprolol DVT/VTE Risk/Contraindication: Risk Factor Score Per Nursin RFS Level Per Nursing on Admit: 4+=Very High SHARMILA ODELL DO Sep 17, 2019 17:56
[2019-09-17] MEDS: ENOXAPARIN 40 MG/0.4 ML (LOVENOX) SYR SC SCH (18:01)
[2019-09-17] MEDS: methylPREDNISolone 40 MG/ML (Solu-MEDROL) VIAL IVP SCH (19:48)
[2019-09-17] MEDS: cefTRIAXone FOR IV USE 1,000 MG in WATER (STERILE) FOR INJECTION 10 ML IV SCH (19:48)
[2019-09-17 23:35] VITALS: BP 131/62
[2019-09-18] MEDS: methylPREDNISolone 40 MG/ML (Solu-MEDROL) VIAL IVP SCH ×2 (02:54→10:30)
[2019-09-18] MEDS: RT-ALBUTEROL/IPRATROPIUM 3 ML (DUONEB) VIAL INH SCH ×4 (03:36→13:23)
[2019-09-18] MEDS: CATHETER FLUSH 10 ML SYR IV SCH ×2 (06:05→14:12)
[2019-09-18] MEDS: PANTOPRAZOLE 40 MG (PROTONIX) TAB PO SCH (07:24)
[2019-09-18 08:00] VITALS: BP 129/71
[2019-09-18] MEDS: AZITHROMYCIN 250 MG TAB (ZITHROMAX) PO SCH (08:55)
[2019-09-18] MEDS: BACLOFEN 10 MG (LIORESAL) TAB PO SCH ×2 (08:56→14:11)
[2019-09-18] MEDS ORDERED: BACL10TA PO (13:15)
[2019-09-18] MEDS ORDERED: AZIT250T12 PO (13:15)
[2019-09-18] MEDS ORDERED: PRD20T PO (13:15)
[2019-09-18] MEDS ORDERED: IPRA3AMP31 INH (13:15)
--- NOTE | 2019-09-18 13:19 | Discharge Instructions ---
Discharge Instructions Reconcile Patient Problems Problems Reviewed?: Yes Discharge Medications New, Converted or Re-Newed RX: Transmitted to Pharmacy Activity & Diet Discharge Diet: Cardiac Diet Activity as Tolerated: Yes Orders-Post D/C & Referrals [facility] SHARMILA ODELL DO Sep 18, 2019 13:19
[2019-09-18] MEDS ORDERED: cefTRIAXone FOR IV USE 1,000 MG in WATER (STERILE) FOR INJECTION 10 ML IV NR (13:30)
[2019-09-18] MEDS ORDERED: methylPREDNISolone 40 MG/ML (Solu-MEDROL) VIAL IV NR (13:30)
[2019-09-18] MEDS: ACETAMINOPHEN 500 MG TAB (TYLENOL) PO PRN (14:11)
[2019-09-18 15:00] VITALS: BP 129/71
--- NOTE | 2019-09-18 15:00 | NUR ---
RAKEL JORDAN demonstrates understanding of discharge instructions and accurately returns instructions upon questioning. Copy of Post-Discharge Instructions given to PT. RAKEL JORDAN is able to manage continuing needs after discharge. Patients belongings returned to PT. Patient discharged from 414-1 on 09/18/19 at 1500. RAKEL JORDAN left floor via W/C, accompanied by STAFF AND FAMILY PER AUTO.
--- NOTE | 2019-09-18 18:43 | Discharge Summary ---
Diagnosis/Chief Complaint Date of Admission Sep 15, 2019 at 16:10 Date of Discharge Sep 18, 2019 at 15:00 Discharge Date: Sep 18, 2019 Discharge Diagnosis 1. Acute Respiratory Distress--improved 2. Acute Exacerbation of Oxygen Requiring COPD--improved 3. Hypertension/Tachycardia--stable 4. GERD--stable 5. Left Neck/Trapezius Muscle Pain/Spasm--improving 6. Acute Bronchitis--improving Reason Hospital Visit This is a 74 year old female with severe oxygen dependant COPD who presented to my office with ongoing cough and shortness of air. She had been seen the previous week and given 2 days of Rocephin IM and Solumedrol IM. She was much i mproved after 2 days of this treatment so we was switched to oral cefdinir and a prednisone taper. She worsened over the weekend so she presented back for evaluation and due to failed outpatient treatment, it was decided to admit her directly to the hospital. Discharge Summary Hospital Course Was the Problem List Reviewed?: Yes Hospital Course This is a 74 year old female with severe oxygen dependant COPD who presented to my office with ongoing cough and shortness of air. She had been seen the previous week and given 2 days of Rocephin IM and Solumedrol IM. She was much improved after 2 days of this treatment so we was switched to oral cefdinir and a prednisone taper. She worsened over the weekend so she presented back for evaluation and due to failed outpatient treatment, it was decided to admit her directly to the hospital. She was admitted to the medical floor and given IV solumedrol, IV rocephin and 1 dose of IV zithromax then switched to oral zithromax. She was continued on oxygen and SVNS with duoneb q4hrs. By the second hospital day she was feeling much better. Her only complaint was a burning sensation in her left neck and shoulder area. She started on baclofen and a topical muscle rub which did improve her left neck and muscle pain. After the second day of IV solumedrol, the dose was decreased and the patient tolerated this with no worsening of her symptoms. It was decided she could be discharged home on oral antibiotics and a prednisone taper and continue her home oxygen with routine SVNS with duoneb. She will follow up with me in my office in 4 days. Procedures None. Discharge Physical Examination Allergies: Coded Allergies: No Known Drug Allergies (Unverified , 04/01/19) Vitals & I&Os Vital Signs Date Time Temp Pulse Resp B/P (MAP) Pulse Ox O2 Delivery O2 Flow Rate FiO2 09/18/19 15:00 36.4 72 18 129/71 95 Nasal Cannula 2.00 General Appearance: Alert, Oriented X3, Cooperative, No Acute Distress Respiratory: Clear to Auscultation Cardiovascular: Regular Rate Extremities: No Clubbing, No Cyanosis, No Edema Psych/Mental Status: Mental Status NL Discharge Home Medications Reviewed and agree with Discharge Medication list on patient's Discharge Instruction sheet Instructions to Patient/Family Please see electronic discharge instructions given to patient. Clinical Quality Measures DVT/VTE Risk/Contraindication: Risk Factor Score Per Nursin RFS Level Per Nursing on Admit: 4+=Very High SHARMILA ODELL DO Sep 18, 2019 18:43
== END 2019-09-18 15:00 | disposition home or self-care (01) | DRG 192 ==
LOC: 4TH 16:10
PROVIDERS: ADMIT Family Medicine; ATTEND Family Medicine
DX: J44.0 Chronic obstructive pulmonary disease with (acute) lower respiratory infection (principal); J44.1 Chronic obstructive pulmonary disease with (acute) exacerbation; R06.03 Acute respiratory distress; J20.9 Acute bronchitis, unspecified; I10 Essential (primary) hypertension; R00.0 Tachycardia, unspecified; M54.2 Cervicalgia; M62.838 Other muscle spasm; H91.93 Unspecified hearing loss, bilateral; Z99.81 Dependence on supplemental oxygen; Z87.891 Personal history of nicotine dependence; Z97.4 Presence of external hearing-aid; Z23 Encounter for immunization
CPT/HCPCS: 36415; 36600; 71046; 80053; 82805; 85025; 87070; 87077; 87205; 94640; 94760

== ENCOUNTER → 2020-01-29 | Outpatient (CLI) | payer MEDICARE, OTHER ==
[~2020-01-29] MED LIST changes: +AZIT250T12 PO; +BACL10TA PO; -CETI10TA20 PO; +CETI10TA21 PO; +FLUT16SP22 NS; +FLUT1DIS26 IH; +IPRA3AMP31 INH; +METH4TAB PO; +MONT10TA21 PO
--- NOTE | 2020-01-29 15:34 | Diagnostic Imaging Report ---
EXAMINATION: CT Chest without contrast. TECHNIQUE: Multiple contiguous axial images were obtained through the chest without the use of intravenous contrast. All CT scans use one or more of the following dose optimizing techniques: automated exposure control, MA and/or KvP adjustment based on a patient size and exam type, or iterative reconstruction. HISTORY: Shortness of breath. COMPARISON: 07/29/2019. FINDINGS: The lungs are emphysematous. There is bronchiectasis throughout the right lung and to a lesser degree in the lingula. There are patchy areas of nodularity involving the right lower lobe which are new from prior exam. There is mild mucous plugging in the right upper lobe. No consolidation. No edema. There is no pleural effusion or pneumothorax. Heart size is normal. There are mild coronary artery calcifications. No pericardial effusion. Aorta is normal in caliber. There is no axillary or supraclavicular lymphadenopathy. There is no mediastinal lymphadenopathy. Limited views of the upper abdomen are unremarkable. There are no suspicious osseus lesions. IMPRESSION: 1. Patchy areas of nodularity involving the right lower lobe are new from prior exam with areas of mucous plugging in the right upper lobe, likely representing endobronchial infectious process. The severity is mild. 2. Unchanged bronchiectasis throughout the right lung and to a lesser degree in the lingula. Dictated by: Dictated on workstation # [id number]
== END ==
LOC: RAD 14:05
PROVIDERS: ATTEND Nurse Practitioner Family
DX: J44.9 Chronic obstructive pulmonary disease, unspecified (principal)
CPT/HCPCS: 71250